=== PATIENT | male | born 1955 | race Caucasian/White ===

== ENCOUNTER 2020-05-14 01:17 | Inpatient (IN) | payer OTHER ==
[~2020-05-14] VITALS: Ht 167.6 cm; Wt 76.3 kg
[2020-05-14] VITALS (9 sets, daily range): BP systolic 105–139; BP diastolic 36–95
--- NOTE | 2020-05-14 01:25 | NUR ---
Pt [place] from a trailer [place] on [place] [address]. EMS was called after pt c/o SOB. Pt stated that he is a chronic cigarette and heroin smoker, he also uses methamphetamine. Patient has a history of heart failure, cellulitis of the lower legs, sepsis, type 2 diabetes mellitus, hydronephrosis with renal stone, cirrhosis is cyanosis of the distal extremities and substance abuse. Was last admitted on April 16 at [facility]. Pt is AO x 3, verbally responsive but a poor historian. He does not know if he can walk, states that he hasn't done in a while. Unable to obtain accurate SPO2 saturation, all digits of hands and legs are very cold to touch, discoloration noted as well. Breathing is even and unlabored, at 20 RR. Placed on 4LPM of O2 via NC for comfort. Has multiple sores throughout his body including his bilateral upper arms (swelling with open and closed wounds), hands, L buttocks (2 open pressure ulcers), bilateral knees (open sores), bilateral legs (swelling, open sores, discoloration), bilateral feet (open sores and swelling), DTI noted on L foot sole as well. Pillow support placed on L side. Side rails up x 2. Pending MSE.
--- NOTE | 2020-05-14 01:30 | NUR ---
Dr. Victor at bedside for MSE.
[2020-05-14] MEDS ORDERED: IV NORMAL SALINE 1000 ML BAG IV ONE (01:45)
--- NOTE | 2020-05-14 01:45 | NUR ---
Pt is a hardstick, although he denies IV drug use. Tried 3x,, finally got a PIV on R forearm 20G. Bloodculture and labs were drawn. Sent to lab.
[2020-05-14 02:00] LABS: ABG BASE EXCESS -0.2 mmol/L; ABG HCO3 24.3 mmol/L; ABG PCO2 39.2 mmHg (35.0-45.0); ABG PO2 35.8 mmHg (75.0-100.0); ABG SITE LEFT RADIAL; COHb 3.2 % (0.5-1.5); MetHb 0.4 % (0.0-1.5); O2Hb 64.3 % (94.0-97.0); VENT MODE ROOM AIR
--- NOTE | 2020-05-14 02:00 | NUR ---
Sepsis initial assessment done and SEPSIS protocols initiated, NS bolus fluids started.
[2020-05-14 02:13] LABS: BASOPHILS # (AUTO) 0.1 K/uL (0.0-8.0); BASOPHILS % (AUTO) 0.7 % (0.0-2.0); CARBON DIOXIDE 26 mmol/L (21-32); CHLORIDE 106 mmol/L (98-107); CREATININE 1.2 mg/dL (0.6-1.3); GLUCOSE 241 mg/dL (74-106); HEMATOCRIT 39.5 % (36.7-47.1); HEMOGLOBIN 12.3 g/dL (12.5-16.3); LYMPHOCYTES # (AUTO) 0.5 K/uL (20.0-40.0); LYMPHOCYTES % (AUTO) 2.5 % (20.5-51.5); MEAN CORPUSCULAR HEMOGLOBIN 24.2 uug (23.8-33.4); MEAN CORPUSCULAR HGB CONC 31 g/dL (32.5-36.3); MEAN CORPUSCULAR VOLUME 77.6 fL (73.0-96.2); MONOCYTES # (AUTO) 1.1 K/uL (2.0-10.0); MONOCYTES % (AUTO) 5.4 % (0.0-11.0); NEUTROPHILS # (AUTO) 18.9 K/uL (1.8-8.9); NEUTROPHILS % (AUTO) 91.4 % (38.5-71.5); PLATELET COUNT (AUTO) 317 K/uL (152-348); POTASSIUM 4.1 mmol/L (3.5-5.1); RED BLOOD CELL COUNT(AUTO) 5.09 MIL/uL (4.06-5.63); UREA NITROGEN, BLOOD 38 mg/dL (7-18); WHITE BLOOD COUNT (AUTO) 20.6 K/uL (3.6-10.2)
[2020-05-14 02:21] LABS: ETHANOL < 3 MG/DL (0-0)
[2020-05-14 02:26] LABS: THYROID STIMULATING HORMONE 6.644 mIU/mL (0.358-3.740)
[2020-05-14 02:28] LABS: ALANINE AMINOTRANSFERASE 96 U/L (16-63); ALKALINE PHOSPHATASE 229 U/L (50-136); ASPARTATE AMINOTRANSFERASE 89 U/L (15-37); BILIRUBIN,DIRECT 1.9 mg/dL (0.0-0.2); BILIRUBIN,TOTAL 2.7 mg/dL (0.2-1.0); TOTAL PROTEIN, SERUM 6.6 g/dL (6.4-8.2)
[2020-05-14] MEDS ORDERED: CEFTRIAXONE 2 G in IV DEXTROSE 5% 100 ML IV ONE (02:30)
--- NOTE | 2020-05-14 02:30 | NUR ---
First antibiotic started, Rocephin 2 grams via PIV on R FA.
[2020-05-14 02:32] LABS: *BILIRUBIN,URIN 2+ (NEGATIVE); *CLARITY,URINE CLEAR (CLEAR); *COLOR,URINE AMBER (YELLOW); *KETONES,URINE 2+ (NEGATIVE); LEUKOCYTE ESTERASE ,URINE 1+ (NEGATIVE); NITRITE, URINE NEGATIVE (NEGATIVE); PH,URINE 5.5 (5.0-8.0); UGLUCOSE NEGATIVE (NEGATIVE)
[2020-05-14] MEDS ORDERED: CEFTRIAXONE /D5W 50ML IVPB **ER PYXIS IV ONE (02:33)
[2020-05-14] MEDS ORDERED: VANCOMYCIN IV 200 ML ONE (02:33)
[2020-05-14 02:34] LABS: ACETAMINOPHEN < 2.0 ug/mL (10-30)
--- NOTE | 2020-05-14 02:45 | NUR ---
Pt went to CT scan, left in stable condition. Fluids held.
[2020-05-14 02:52] LABS: *AMPHETAMINE, URINE POSITIVE (NEGATIVE); *CANNABINOID, URINE POSITIVE (NEGATIVE); *COCCAINE, URINE NEGATIVE (NEGATIVE); *OPIATE, URINE POSITIVE (NEGATIVE); *PHENCYCLIDINE SCREEN,URINE NEGATIVE (NEGATIVE)
[2020-05-14 02:54] LABS: *BLOOD, URINE TRACE (NEGATIVE)
[2020-05-14 03:02] LABS: BACTERIA,URINE NONE SEEN /HPF (NONE SEEN); SQUAMOUS EPITHELIAL CELL,UR FEW /HPF (NONE SEEN); URIC ACID CRYSTALS,URINE FEW /HPF (NONE SEEN)
--- NOTE | 2020-05-14 03:15 | NUR ---
Pt back from CT, stable condition. Not in acute distress. Fluids continued.
[2020-05-14] MEDS: VANCOMYCIN IV 1,000 MG in IV DEXTROSE 5% 250 ML IV ONE ×2 (03:30→04:30)
--- NOTE | 2020-05-14 03:30 | NUR ---
Initial bolus of fluids finished at this time, sepsis re-assessment done.
--- NOTE | 2020-05-14 03:49 | NUR ---
Dr. Victor on the line with Dr. Holger Martínez for Tele admission, sepsis.
--- NOTE | 2020-05-14 03:50 | NUR ---
Pt with BM, perineal care provided. complete linen change done. Pt tolerated procedure. Turned on R side of the bed.
[2020-05-14] MEDS ORDERED: ACETAMINOPHEN 325 MG TABLET PO PRN (04:00)
[2020-05-14] MEDS ORDERED: MAGNESIUM HYDROXIDE 30 ML LIQUID UDC PO PRN (04:00)
[2020-05-14] MEDS ORDERED: ONDANSETRON 4 MG/2 ML VIAL IV PRN (04:00)
[2020-05-14] MEDS ORDERED: ENOXAPARIN SODIUM 40 MG/0.4 ML DISP.SYRIN SQ SCH (04:00)
--- NOTE | 2020-05-14 04:15 | NUR ---
Repeat Lactic and Troponin drawn per AMI/Sepsis Protocols.
--- NOTE | 2020-05-14 04:30 | NUR ---
Dr Victor notified of patient's continued AFIB RVR despite fluids given.
[2020-05-14] MEDS ORDERED: DILTIAZEM HCL 25 MG IV IV ONE ×2 (04:45→05:15)
[2020-05-14] MEDS ORDERED: DILTIAZEM HCL 25 MG IV ONE ×2 (04:49→06:21)
[2020-05-14] MEDS ORDERED: DEXTROSE 5% IV ONE (05:15)
[2020-05-14] MEDS ORDERED: DILTIAZEM HCL IV ONE (05:15)
[2020-05-14] MEDS ORDERED: DILTIAZEM HCL 50 MG IV ONE ×2 (05:23→06:21)
--- NOTE | 2020-05-14 05:45 | NUR ---
Dilitiazem 25 mg IV Push administered x 1 at 0445, still Afib RVR @ 90-130bpm, then another dose at Diltiazem 35 mg IV push administed x 1 0515. Re-assessed now, patient still @ 86-110 AFib RVR, not controlled. Dr Victor notified. [facility] paged.
--- NOTE | 2020-05-14 06:00 | NUR ---
Dr Wren called back, okay to admit FRANCESCO. [facility] Nurse Veronica notified, CCU-3 (FRANCESCO overflow given). New order for Diltiazem 5mg/hr noted, will carry out.
[2020-05-14] MEDS ORDERED: ENOXAPARIN SODIUM 40 MG/0.4 ML DISP.SYRIN SQ ONE (06:20)
--- NOTE | 2020-05-14 06:40 | NUR ---
Report given to Veronica ROGERS.
--- NOTE | 2020-05-14 07:30 | NUR ---
Patient in from [facility]. vitals signs stable, afebrile, pt some how able to assist with transfer from gurney to bed getting tired saturation within desire limits. sbp as follow: HR 115, 95/70 RR in the lower to mid 20's. IV G20 to RFA patent. Pt on oxygen 2L. saturation within desired limits. Skin with sores, in multiple stages all over pt's body see pictures. Addendum: 05/14/20 at 0900 by SABI GONZALEZ RN Patient received on cardizem drip running at 5mg/hr.
--- NOTE | 2020-05-14 08:15 | NUR ---
Cardiology services, Dr. Lewis in the unit and assessing pt. report given and orders to titrate cardizem drip if heart rate below 100. pt's current HR in the 110-120's range. will continue to monitor.
[2020-05-14] MEDS ORDERED: DIGOXIN 500 MCG/2 ML AMP IV ONE (09:00)
[2020-05-14] MEDS: ASPIRIN EC 81 MG TABLET.DR PO SCH (09:05)
[2020-05-14] MEDS: PANTOPRAZOLE SODIUM 40 MG TABLET.DR PO SCH (09:05)
[2020-05-14] MEDS: FUROSEMIDE 40 MG/4 ML VIAL IV SCH ×2 (09:05→20:45)
[2020-05-14] MEDS: CEFEPIME HCL 1 G in IV DEXTROSE 5% 50 ML IV SCH ×2 (13:21→22:01)
--- NOTE | 2020-05-14 14:05 | NUR ---
Promotion Officer note: This SW was informed by CCU RN Concetta about patient's condition and need for SS consultation. This SW and Concetta discussed patient's case, condition, and reason for admission. APS report was made for self-neglect. APS report # [id number]. This SW will follow-up with patient, to assess needs and offer resources, as applicable.
--- NOTE | 2020-05-14 14:48 | NUR ---
A call to attending physician Dr. Johnson to update him on pt's condition and behavior. Orders received and implemented. Also orders to obtained pt's old records from [email or web address].
--- NOTE | 2020-05-14 15:27 | NUR ---
The undersigned spoke with [facility] Medical records depto. at [employer], and at this time I was informed that pt was in this facility not long ago. Authorization for use or disclosure of health information faxed to ( as requested by attending physician Dr. Johnson. Awaiting for report.
[2020-05-14] MEDS: LORAZEPAM 2 MG/1 ML VIAL IV PRN (15:32)
[2020-05-14] MEDS: DIGOXIN 500 MCG/2 ML AMP IV SCH ×2 (15:32→20:46)
[2020-05-14] MEDS: VANCOMYCIN IV 1,250 MG in IV DEXTROSE 5% 250 ML IV SCH (15:38)
--- NOTE | 2020-05-14 19:00 | NUR ---
Received patient in bed awake and alert. Patient seems somewhat confused as sometimes his responses branch in a different direction than what I asked. Patient is otherwise calm at this moment while watching television. Was reported to me that the patient can get agitated and start being verbally abusive, and that a code rebolledo would be required for assistance. Patient has a DONNIE midline and a Right forearm 20g peripheral IV. IV currently running Diltiazem @5mL/hr and NS at 5ml TKO. Heart rate currently Sinus tachycardia with occasional PVC/PAC, with the rate ranging from the 100s-120s. Patient is supposed to be on 2L O2 via NC, however he has taken off his nasal cannula and is currently on room air with SAT 97-98%, no signs of distress. Alcocer catheter present and draining clear yellow urine. Patient's skin condition is concerning with numerous sores of varying size, color, and depth on virtually every surface of his body including all fingers and toes. Most concerning are the pressure sores on his buttocks and sacral area which are large. Skin coloring is also varying with distal bilateral lower extremities and the distal left arm and hand showing bright redness consistent with his history of cellulitis. The rest of the skin is slightly yellow/pale with mottling and occasional areas of bruising. First step mattress present in the room but not placed on the bed for safety concerns as the patient has been attempting to get out of bed.
[2020-05-14] MEDS: HYDROCODONE/APAP 5-325MG TABLET PO PRN (19:54)
[2020-05-14] MEDS: ENOXAPARIN SODIUM 100 MG/ML DISP.SYRIN SQ SCH (20:47)
[2020-05-15] VITALS (24 sets, daily range): BP systolic 109–147; BP diastolic 61–106
[2020-05-15] MEDS: DILTIAZEM HCL IV 125 MG in IV NORMAL SALINE 100 ML IV PRN ×3 (02:50→20:18)
[2020-05-15] MEDS: VANCOMYCIN IV 1,250 MG in IV DEXTROSE 5% 250 ML IV SCH ×2 (04:05→16:25)
[2020-05-15 05:05] LABS: BASOPHILS % (AUTO) 0.2 % (0.0-2.0); HEMATOCRIT 33.2 % (36.7-47.1); HEMOGLOBIN 10.3 g/dL (12.5-16.3); LYMPHOCYTES # (AUTO) 0.5 K/uL (20.0-40.0); LYMPHOCYTES % (AUTO) 3.5 % (20.5-51.5); MEAN CORPUSCULAR HEMOGLOBIN 23.6 uug (23.8-33.4); MEAN CORPUSCULAR HGB CONC 31 g/dL (32.5-36.3); MONOCYTES # (AUTO) 1.4 K/uL (2.0-10.0); MONOCYTES % (AUTO) 9.6 % (0.0-11.0); NEUTROPHILS # (AUTO) 12.2 K/uL (1.8-8.9); NEUTROPHILS % (AUTO) 86.7 % (38.5-71.5); PLATELET COUNT (AUTO) 219 K/uL (152-348); RED BLOOD CELL COUNT(AUTO) 4.38 MIL/uL (4.06-5.63); WHITE BLOOD COUNT (AUTO) 14.1 K/uL (3.6-10.2)
[2020-05-15 05:27] LABS: THYROID STIMULATING HORMONE 5.273 mIU/mL (0.358-3.740)
[2020-05-15 05:32] LABS: MAGNESIUM 1.4 mg/dL (1.8-2.4); PHOSPHOROUS 1.9 mg/dL (2.5-4.9)
[2020-05-15 05:47] LABS: POTASSIUM 2.7 mmol/L (3.5-5.1)
--- NOTE | 2020-05-15 07:15 | NUR ---
Received report from time cycle operator nurse, patient in bed awake and confused, alert only to name and president. Patient is sinus tachycardia on the monitor, oxygen saturation 95% on room air, perez catheter in place and draining appropriately. Air mattress inflated, side rails up x2, bed alarm on. hemodynamically stable.
[2020-05-15] MEDS: CEFEPIME HCL 1 G in IV DEXTROSE 5% 50 ML IV SCH ×3 (07:17→21:25)
[2020-05-15] MEDS: PANTOPRAZOLE SODIUM 40 MG TABLET.DR PO SCH (07:17)
[2020-05-15] MEDS ORDERED: MAGNESIUM SULFATE 1 GM in IV DEXTROSE 5% 100 ML IV ONE (07:30)
[2020-05-15] MEDS: MAGNESIUM SULFATE/D5W 100 ML IV SCH ×4 (07:49→11:02)
[2020-05-15] MEDS ORDERED: ENOXAPARIN SODIUM 40 MG/0.4 ML DISP.SYRIN SQ SCH (09:00)
[2020-05-15] MEDS: FUROSEMIDE 40 MG/4 ML VIAL IV SCH ×3 (09:00→20:25)
[2020-05-15] MEDS ORDERED: DIGOXIN 125 MCG TABLET PO SCH (09:00)
--- NOTE | 2020-05-15 09:04 | NUR ---
Patient seen by Dr. Johnson, discussed results of TSH levels, prior insulin usage and need for nicotine patch and podiatry consult due to blackened toes on left foot with open wounds. Orders received.
[2020-05-15] MEDS: ASPIRIN EC 81 MG TABLET.DR PO SCH (09:17)
[2020-05-15] MEDS: ENOXAPARIN SODIUM 100 MG/ML DISP.SYRIN SQ SCH ×2 (09:20→20:41)
--- NOTE | 2020-05-15 09:45 | NUR ---
Patient is agitated and is asking for a cigarette, patient stating that he may want to leave. Patient was asked if he would like something for his anxiety and he stated yes. patient given ativan.
[2020-05-15] MEDS: LORAZEPAM 2 MG/1 ML VIAL IV PRN ×3 (09:49→23:02)
[2020-05-15] MEDS: NICOTINE 21 MG/24HR PATCH TD SCH (09:50)
--- NOTE | 2020-05-15 10:00 | NUR ---
Patients belongings had 2 torch lighters that were given to dye house wheel operator Viry to take to security.
--- NOTE | 2020-05-15 10:34 | NUR ---
Patient seen by Dr Solomon Hand Cigar Maker. Received orders to paint wounds with betadyne and wrap with kerlix.
--- NOTE | 2020-05-15 11:06 | NUR ---
WOUND CARE CONSULT: PT UNCOOPERATIVE WITH SKIN ASSESSMENT. REVIEWED CHART, NURSING DOCUMENTATION AND PHOTOS WHICH INDICATE DRY WOUNDS TO ELBOWS, KNEES, LOWER LEGS AND FEET WELL INTACT DEEP TISSUE INJURIES TO SACRUM EXTENDING TO BUTTOCKS, ALL PRESENT ON ADMISSION. LEFT ARM NOTED TO BE SWOLLEN. RECOMMENDATIONS MADE FOR SKIN PROTECTION. DISCUSSED WITH NURSING STAFF. DR BANEGAS ON CASE FOR LOWER EXTREMITIES. DR GRIFFITH CONSULTED FOR SURGICAL CONSULT. [facility] IN AGREEMENT WITH PLAN OF CARE.
[2020-05-15] MEDS ORDERED: Z GUARD REMEDY PASTE 57 GM TUBE TOP PRN (11:15)
[2020-05-15] MEDS: POTASSIUM CHLORIDE 50 ML IV SCH ×8 (11:53→19:27)
--- NOTE | 2020-05-15 13:45 | NUR ---
Late note: Noted that Dr. Martinez ordered CTA of abdominal aorta with runoff. Contacted Dr. Martinez after he left the unit to request for him to sign form for incapacitated as patient can not sign for himself at this time due to confusion. Dr. Martinez stated that it isnt urgent and that it can be done when he is able to answer and consent to diagnostic imaging.
--- NOTE | 2020-05-15 14:33 | NUR ---
Compressor Repairer Consultation: 1:30pm: This SW met with patient today to complete a social media manager consultation. Reason for consultation is homelessness. Patient is a 64 year old male, who was brought into the ED by paramedics on 05/14 after friends/neighbors called the paramedics because patient was sitting in his van and smoking heroin and meth for nearly 1 week. Patient was found with urine on him, and was also sitting in a pool of his urine that was surrounding him. Admitting diagnosis is sepsis. Per patient's medical records, patient was recently at [facility] from 04/13-04/16 for sepsis, SOB, and cellulitis. Per patient's medical records, patient left [facility]. Patient is awake, presented oriented x 1-2. Patient attempted to engage in dialogue, but speech was unclear at times, and incoherent. Patient was not able to provide much information to this SW. When asked who the president was, patient stated "Jose Newton". Patient has wounds and scabs all over his body. APS report was made by this SW on 05/14 (see previous SS note). SW will remain available to patient, as needed. SW will work with case management to ensure a safe and proper discharge for the patient.
[2020-05-15] MEDS ORDERED: NEUTRA PHOS PACKET PO ONE (15:45)
--- NOTE | 2020-05-15 16:15 | NUR ---
Dr. Lewis in unit to see patient, he reviewed prior records and indicated to continue cardizem drip and titrate to keep HR below 110. CT scan when able.
--- NOTE | 2020-05-15 16:20 | NUR ---
Asked Dr. Lewis if he wanted to sign incapacitated form for CTA consent and he stated that it is ok to do scan when the patient is able to consent and answer questions for diagnostic procedure and that it will not change the course of treatment.
[2020-05-15] MEDS ORDERED: DEXTROSE 50% 50 ML DISP.SYRIN IV PRN (17:15)
--- NOTE | 2020-05-15 19:00 | NUR ---
Patient continues to be in sinus rhythm on the monitor. 95% oxygen saturation on 2L nasal cannula. Hemodynamically stable. Patient tolerating meals adequately, perez catheter in place perez catheter draining appropriately. Wounds wrapped after bath. air mattress inflated and bed in low position, with side rails upx2.
--- NOTE | 2020-05-15 20:00 | NUR ---
ROUNDS MADE PATIENT IN BED ,ON AND OFF AWAKE ,PATIENT ALERT AND AWAKE VERBALLY RESPONSIVE . SR TO AFIB WITH PVC AND PACS ON THE HEART MONITOR .CARDIZEM DRIP IN PROGRESS AT 5 MG/HR VIA THE RIGHT UPPER ARM MIDLINE . HOFFMAN CATHETER INTACT WITH YELLOWISH URINE , 02 AT 2 L/MIN SATURATION 98% ,HOB UP , ADVISED PATIENT TO CALL FOR ASSISTANCE AND TO USED THE CALL LIGHT .
[2020-05-15] MEDS: Z GUARD REMEDY PASTE 57 GM TUBE TOP SCH (20:25)
[2020-05-15] MEDS: BLOOD SUGAR DIAGNOSTIC 1 EACH STRIP VI SCH (20:42)
[2020-05-15] MEDS: INSULIN REGULAR, HUMAN 300 UNIT/3 ML VIAL SQ PRN (20:43)
--- NOTE | 2020-05-15 21:30 | NUR ---
patient requesting for something to eat ,given applesauce ,chocolate pudding and jello head of the bed up and aspiration precaution observed assisted with feeding .
--- NOTE | 2020-05-15 23:19 | NUR ---
patient asked to go out and he wants to smoked informed his in the hospital and its already 2300 at night patient insisted and wants his shoes ,educated patient and given Ativan prn for anxiety . will continue to monitor v/s and levels of comfort .
[2020-05-16] VITALS (24 sets, daily range): BP systolic 83–146; BP diastolic 59–89
--- NOTE | 2020-05-16 03:30 | NUR ---
am care done ,bath patient ,changed soiled linens and gown .wound care done to bilateral lower extremities to bilateral knee right and left hip and sacral area follow wound care treatment .patient requested ice chip given ,able to feed self .
[2020-05-16] MEDS: LORAZEPAM 2 MG/1 ML VIAL IV PRN ×2 (03:46→21:28)
[2020-05-16] MEDS: VANCOMYCIN IV 1,250 MG in IV DEXTROSE 5% 250 ML IV SCH ×2 (03:47→16:03)
[2020-05-16] MEDS ORDERED: VANCOMYCIN HCL 500 MG VIAL ONE (03:47)
[2020-05-16] MEDS ORDERED: VANCOMYCIN 1000 MG VIAL ONE (03:47)
--- NOTE | 2020-05-16 04:29 | NUR ---
tire and tube repairer at b/s for morning labs . patient for cbc,mag,bmp .
[2020-05-16 04:45] LABS: BASOPHILS # (AUTO) 0.1 K/uL (0.0-8.0); EOSINOPHILS % (AUTO) 0.2 % (0.0-7.0); HEMATOCRIT 31.5 % (36.7-47.1); HEMOGLOBIN 9.8 g/dL (12.5-16.3); LYMPHOCYTES # (AUTO) 0.5 K/uL (20.0-40.0); LYMPHOCYTES % (AUTO) 4.5 % (20.5-51.5); MEAN CORPUSCULAR HEMOGLOBIN 23.5 uug (23.8-33.4); MEAN CORPUSCULAR HGB CONC 31 g/dL (32.5-36.3); MEAN CORPUSCULAR VOLUME 75.3 fL (73.0-96.2); MONOCYTES # (AUTO) 1.1 K/uL (2.0-10.0); NEUTROPHILS # (AUTO) 10.3 K/uL (1.8-8.9); NEUTROPHILS % (AUTO) 85.3 % (38.5-71.5); PLATELET COUNT (AUTO) 171 K/uL (152-348); RED BLOOD CELL COUNT(AUTO) 4.18 MIL/uL (4.06-5.63); WHITE BLOOD COUNT (AUTO) 12.1 K/uL (3.6-10.2)
[2020-05-16 05:00] LABS: CREATININE 0.8 mg/dL (0.6-1.3); DIGOXIN 0.6 ng/mL (0.9-2.0)
[2020-05-16 05:04] LABS: POTASSIUM 2.6 mmol/L (3.5-5.1)
[2020-05-16] MEDS: CEFEPIME HCL 1 G in IV DEXTROSE 5% 50 ML IV SCH ×3 (05:19→21:27)
--- NOTE | 2020-05-16 06:00 | NUR ---
called abnormal am labs to [facility] service waiting for call back.
[2020-05-16] MEDS: PANTOPRAZOLE SODIUM 40 MG TABLET.DR PO SCH (06:15)
--- NOTE | 2020-05-16 06:15 | NUR ---
fingerstick done 144 will endorse to day shift .
[2020-05-16] MEDS: LEVOTHYROXINE SODIUM 25 MCG TABLET PO SCH (06:16)
[2020-05-16] MEDS: BLOOD SUGAR DIAGNOSTIC 1 EACH STRIP VI SCH ×4 (06:33→20:14)
--- NOTE | 2020-05-16 06:47 | NUR ---
called [facility] again for am labs . awaiting for call back dr: Holger nino construction scheduler .
--- NOTE | 2020-05-16 07:05 | NUR ---
due medication scan and patient took with sips of water.
[2020-05-16] MEDS ORDERED: MAGNESIUM SULFATE/D5W 100 ML IV SCH (07:45)
[2020-05-16] MEDS ORDERED: MAGNESIUM SULFATE 2 GM in IV DEXTROSE 5% 100 ML IV ONE ×2 (08:00→09:00)
[2020-05-16] MEDS ORDERED: POTASSIUM CHLORIDE 20 MEQ TAB.PRT.SR PO ONE ×4 (08:00→21:00)
[2020-05-16] MEDS: DIGOXIN 250 MCG TABLET PO SCH (08:05)
[2020-05-16] MEDS: ASPIRIN EC 81 MG TABLET.DR PO SCH (08:05)
[2020-05-16] MEDS: FUROSEMIDE 40 MG/4 ML VIAL IV SCH ×2 (08:05→20:15)
[2020-05-16] MEDS: Z GUARD REMEDY PASTE 57 GM TUBE TOP SCH ×2 (08:06→20:15)
[2020-05-16] MEDS: ENOXAPARIN SODIUM 100 MG/ML DISP.SYRIN SQ SCH ×2 (08:07→20:09)
[2020-05-16] MEDS: NICOTINE 21 MG/24HR PATCH TD SCH (08:08)
[2020-05-16] MEDS ORDERED: SWABABLE VALVE TRANSFER SET EA MC ONE (08:29)
[2020-05-16] MEDS ORDERED: IV NORMAL SALINE 250 ML IV ONE (08:29)
[2020-05-16] MEDS ORDERED: IOHEXOL 300MG/ML 100 ML INFUS..BTL ONE (08:29)
[2020-05-16] MEDS ORDERED: DIGOXIN 125 MCG TABLET PO SCH (09:00)
--- NOTE | 2020-05-16 09:00 | NUR ---
Pt.went to CT,tolerated well,no s/s of distress,denies pain @ time.
--- NOTE | 2020-05-16 10:00 | NUR ---
Pt.was seen by FIDENCIO FERGUSON MD
--- NOTE | 2020-05-16 10:53 | NUR ---
Pt.was seen by GUY COOPER MD,with new orders.
[2020-05-16] MEDS: INSULIN REGULAR, HUMAN 300 UNIT/3 ML VIAL SQ PRN ×3 (11:45→20:15)
[2020-05-16 17:15] LABS: CREATININE 0.8 mg/dL (0.6-1.3); MAGNESIUM 1.7 mg/dL (1.8-2.4); POTASSIUM 2.9 mmol/L (3.5-5.1)
--- NOTE | 2020-05-16 17:59 | NUR ---
[facility] WAS PAGED,LABS BACK- K+2.9, Mg+1.7.
[2020-05-16] MEDS: MAGNESIUM SULFATE/D5W 100 ML IV SCH ×3 (18:20→20:20)
[2020-05-16] MEDS: POTASSIUM CHLORIDE 50 ML IV SCH ×4 (18:20→21:27)
--- NOTE | 2020-05-16 18:30 | NUR ---
Pt. in bed,getting slightly agitated. No s/s of acute distress,denies pain @ time.
--- NOTE | 2020-05-16 19:30 | NUR ---
patient in bed awake ,alert. patient on room air no respiratory distress notes saturation 100% and rr 20. patient seems anxious and wants to go home and verbalized get me out in here . patient wants to call for taxi for him to go home . discussed with patient plan of care and that his still on antibiotic and extremely weak and he cannot even manage to walk for now and that he cannot even take care of himself.
--- NOTE | 2020-05-16 20:00 | NUR ---
afebrile temp 98.2 orally . requesting for ice chips provided assisted patient with po intake ,upper extremities hand aere weak . hob up aspiration precaution observed . call luis angel light placed with in reach and advised to call for help .
[2020-05-16] MEDS ORDERED: POTASSIUM CHLORIDE 20 MEQ TAB.PRT.SR ONE ×2 (20:19→20:27)
--- NOTE | 2020-05-16 21:00 | NUR ---
SARAHI HARTMAN CAME AND VISITED PATIENT AND SPOKED WITH PATIENT .
--- NOTE | 2020-05-16 22:13 | NUR ---
restarted Cardizem drip at 5 mg/hr afib 118 ,see emar .
[2020-05-16] MEDS: DILTIAZEM HCL IV 125 MG in IV NORMAL SALINE 100 ML IV PRN (22:17)
[2020-05-17] VITALS (24 sets, daily range): BP systolic 111–171; BP diastolic 56–94
[2020-05-17] MEDS: VANCOMYCIN IV 1,250 MG in IV DEXTROSE 5% 250 ML IV SCH ×2 (03:23→15:09)
[2020-05-17] MEDS: IV NORMAL SALINE 250 ML IV PRN (03:34)
--- NOTE | 2020-05-17 04:00 | NUR ---
am care done ,bath patient ,wound dressing done to upper and lower extremities,sacral area and Right and left hip .follow wound care recommendation .patient able to help in turning.max assist .
[2020-05-17] MEDS: CEFEPIME HCL 1 G in IV DEXTROSE 5% 50 ML IV SCH (05:14)
--- NOTE | 2020-05-17 05:24 | NUR ---
license clerk at b/s for am labs .
[2020-05-17 05:41] LABS: BASOPHILS # (AUTO) 0.1 K/uL (0.0-8.0); BASOPHILS % (AUTO) 0.7 % (0.0-2.0); EOSINOPHILS % (AUTO) 0.3 % (0.0-7.0); HEMATOCRIT 35.5 % (36.7-47.1); HEMOGLOBIN 10.9 g/dL (12.5-16.3); LYMPHOCYTES # (AUTO) 0.8 K/uL (20.0-40.0); LYMPHOCYTES % (AUTO) 5.3 % (20.5-51.5); MEAN CORPUSCULAR HEMOGLOBIN 23.4 uug (23.8-33.4); MEAN CORPUSCULAR HGB CONC 31 g/dL (32.5-36.3); MEAN CORPUSCULAR VOLUME 76.1 fL (73.0-96.2); MONOCYTES # (AUTO) 1.4 K/uL (2.0-10.0); MONOCYTES % (AUTO) 9.4 % (0.0-11.0); NEUTROPHILS # (AUTO) 12.1 K/uL (1.8-8.9); NEUTROPHILS % (AUTO) 84.3 % (38.5-71.5); PLATELET COUNT (AUTO) 178 K/uL (152-348); RED BLOOD CELL COUNT(AUTO) 4.66 MIL/uL (4.06-5.63); WHITE BLOOD COUNT (AUTO) 14.4 K/uL (3.6-10.2)
[2020-05-17 05:46] LABS: CREATININE 0.8 mg/dL (0.6-1.3); POTASSIUM 3.7 mmol/L (3.5-5.1)
[2020-05-17] MEDS: LEVOTHYROXINE SODIUM 25 MCG TABLET PO SCH (06:08)
[2020-05-17] MEDS: PANTOPRAZOLE SODIUM 40 MG TABLET.DR PO SCH (06:08)
[2020-05-17] MEDS: BLOOD SUGAR DIAGNOSTIC 1 EACH STRIP VI SCH ×4 (07:00→20:58)
--- NOTE | 2020-05-17 07:15 | NUR ---
Received report from rad tech nurse, patient in bed asleep no distress noted this time. Patient is in sinus rhythm on the monitor, hemodynamically stable, oxygen saturation WNL. Alcocer catheter draining appropriately. Air mattress inflated, Side rails up x2, and bed alarm on for safety. Continuous infusion of Cardizem noted @10ml/hr, and NS TKO line. Bed in low position, will continue to monitor.
[2020-05-17] MEDS: INSULIN REGULAR, HUMAN 300 UNIT/3 ML VIAL SQ PRN ×3 (07:17→17:27)
[2020-05-17] MEDS: DIGOXIN 250 MCG TABLET PO SCH (08:12)
[2020-05-17] MEDS: FUROSEMIDE 40 MG/4 ML VIAL IV SCH (08:12)
[2020-05-17] MEDS: ASPIRIN EC 81 MG TABLET.DR PO SCH (08:12)
[2020-05-17] MEDS: NICOTINE 21 MG/24HR PATCH TD SCH (08:12)
[2020-05-17] MEDS: Z GUARD REMEDY PASTE 57 GM TUBE TOP SCH ×2 (08:13→21:00)
[2020-05-17] MEDS: ENOXAPARIN SODIUM 100 MG/ML DISP.SYRIN SQ SCH ×2 (08:14→21:00)
--- NOTE | 2020-05-17 09:45 | NUR ---
Patient seen by Dr. Johnson. New orders received and carried out as ordered.
[2020-05-17] MEDS ORDERED: POTASSIUM CHLORIDE 20 MEQ POWDER PACKET PO ONE (11:00)
--- NOTE | 2020-05-17 11:45 | NUR ---
Patient seen by Dr. Lewis, orders received to stop cardizem drip and ok to downgrade to tele.
[2020-05-17] MEDS: CEFTRIAXONE 1 G in IV DEXTROSE 5% 50 ML IV SCH (13:55)
--- NOTE | 2020-05-17 14:41 | NUR ---
Notified Dr. Johnson that patient is having some mild hematuria and a nose bleed and that Dr. Lewis is ok to downgrade to Tele if he wants.
--- NOTE | 2020-05-17 15:19 | NUR ---
Received instructions to continue monitoring hematuria and nose bleeding, and hold lovenox if bleeding gets worse or persists.
--- NOTE | 2020-05-17 18:53 | NUR ---
Patient continues to be mildly confused at times. Patient alternates between sinus rhythm and afib on the monitor, is hemodynamically stable, and saturation is 96% on room air. Patient tolerating meals independently, and has not had a bowel movement today. Alcocer intact with some mild hematuria. Patient experiencing mild bleeding from left nares. Air mattress inflated, bed in low position, and side rails upx2. will endorse to oncoming shift.
--- NOTE | 2020-05-17 19:00 | NUR ---
Received patient asleep in bed. Patient is in sinus tachycardia on the monitor, hemodynamically stable, oxygen saturation 98% on RA. Alcocer catheter draining appropriately. First Step air mattress inflated. Multiple wound dressings present on Bilateral legs and feet. wound dressing present on left hand and forearm. Sacral wound dressings intact.
[2020-05-17] MEDS: INSULIN REGULAR, HUMAN 300 UNITS/3 ML VIAL SQ PRN (20:59)
--- NOTE | 2020-05-17 21:00 | NUR ---
Mild hematuria with notable clots present in the Alcocer catheter and collection bag. Left nare slightly bleeding. Wounds on the left hand slightly bleeding. 2100 Lovenox to be held.
[2020-05-17] MEDS: LORAZEPAM 2 MG/1 ML VIAL IV PRN (21:22)
--- NOTE | 2020-05-17 21:25 | NUR ---
Patient beginning to become agitated, expressing a desire to get out of bed and go smoke a cigarette and go to the store. Patient agitation increases when attempting to calm and re-orient the patient. Ativan given.
--- NOTE | 2020-05-17 22:25 | NUR ---
Patient currently calm and intermittently sleeping. Ativan effective.
[2020-05-18] VITALS (18 sets, daily range): BP systolic 111–140; BP diastolic 56–98
--- NOTE | 2020-05-18 00:50 | NUR ---
Patient awoke and began to become agitated again, demanding to go to the store. Patient had stripped off his gown and sheets and thrown pillows onto the floor. Linens replaced, patient repositioned in bed with a new gown and pillows for support and comfort, blanket placed over the patient. Patient immediately fell back asleep. No further intervention required.
[2020-05-18] MEDS: VANCOMYCIN IV 1,250 MG in IV DEXTROSE 5% 250 ML IV SCH ×2 (03:46→16:28)
[2020-05-18] MEDS: LORAZEPAM 2 MG/1 ML VIAL IV PRN (03:46)
--- NOTE | 2020-05-18 03:50 | NUR ---
Patient had become increasingly agitated again saying he wants to go have a cigarette and go to the store. Attempts at re-orienting and making him comfortable failed and only agitated him further. Patient attempted to exit the bed two times resulting in bed alarm sounding, and he began continuously removing ECG leads and SpO2 sensor. Non-pharmacological interventions failed to calm the patient. Ativan administered.
[2020-05-18 04:53] LABS: BASOPHILS # (AUTO) 0.1 K/uL (0.0-8.0); BASOPHILS % (AUTO) 0.5 % (0.0-2.0); EOSINOPHILS # (AUTO) 0.1 K/uL (0.0-0.7); EOSINOPHILS % (AUTO) 0.4 % (0.0-7.0); HEMATOCRIT 28.6 % (36.7-47.1); LYMPHOCYTES # (AUTO) 0.8 K/uL (20.0-40.0); LYMPHOCYTES % (AUTO) 5.3 % (20.5-51.5); MEAN CORPUSCULAR HEMOGLOBIN 23.7 uug (23.8-33.4); MEAN CORPUSCULAR HGB CONC 31 g/dL (32.5-36.3); MEAN CORPUSCULAR VOLUME 75.2 fL (73.0-96.2); MONOCYTES # (AUTO) 1.6 K/uL (2.0-10.0); MONOCYTES % (AUTO) 10.6 % (0.0-11.0); NEUTROPHILS # (AUTO) 12.9 K/uL (1.8-8.9); NEUTROPHILS % (AUTO) 83.2 % (38.5-71.5); PLATELET COUNT (AUTO) 182 K/uL (152-348); WHITE BLOOD COUNT (AUTO) 15.5 K/uL (3.6-10.2)
[2020-05-18 05:15] LABS: CREATININE 0.8 mg/dL (0.6-1.3); MAGNESIUM 1.7 mg/dL (1.8-2.4); PHOSPHOROUS 1.9 mg/dL (2.5-4.9); POTASSIUM 3.9 mmol/L (3.5-5.1)
--- NOTE | 2020-05-18 05:35 | NUR ---
Patient ended up ruining his wound dressings on left arm and bilateral lower legs due to his agitation. Wound care completed, all wounds treated with Betadine, new dressings placed. Patient given full bed bath and all noted weeping/open wounds treated with Betadine. Sacral wounds cleansed and new dressings placed. Oral care done and crusty coating on the lips gently removed with Chlorhexidine and lips moisturized.
[2020-05-18] MEDS: LEVOTHYROXINE SODIUM 25 MCG TABLET PO SCH (06:54)
[2020-05-18] MEDS: PANTOPRAZOLE SODIUM 40 MG TABLET.DR PO SCH (06:54)
[2020-05-18] MEDS: BLOOD SUGAR DIAGNOSTIC 1 EACH STRIP VI SCH ×4 (06:55→20:03)
[2020-05-18] MEDS: INSULIN REGULAR, HUMAN 300 UNIT/3 ML VIAL SQ PRN ×3 (06:55→18:13)
--- NOTE | 2020-05-18 07:15 | NUR ---
Received report from biochemistry specialist nurse, patient in bed awake, confused attempting to swallow medications with nurse at bedside. Tachycardic on the monitor 120 bpm, hemodynamically stable, oxygen saturation 99% on room air. Alcocer intact and draining. air mattress inflated, bed in low position, side rails up x2. Will continue to monitor.
[2020-05-18] MEDS ORDERED: FUROSEMIDE 40 MG TABLET PO SCH (09:00)
--- NOTE | 2020-05-18 09:00 | NUR ---
Dr Castle in unit. Notified him that lovenox was held last night due to minimal bleeding in perez and nose. Received orders to continue as ordered and monitor for more bleeding.
[2020-05-18] MEDS: MAGNESIUM SULFATE/D5W 100 ML IV SCH ×2 (09:06→10:42)
[2020-05-18] MEDS: ZINC SULFATE 220 MG CAPSULE PO SCH (09:06)
[2020-05-18] MEDS: ASPIRIN EC 81 MG TABLET.DR PO SCH (09:06)
[2020-05-18] MEDS: DIGOXIN 250 MCG TABLET PO SCH (09:06)
[2020-05-18] MEDS: ASCORBIC ACID 250 MG TABLET PO SCH (09:07)
[2020-05-18] MEDS: NICOTINE 21 MG/24HR PATCH TD SCH (09:08)
[2020-05-18] MEDS: ENOXAPARIN SODIUM 100 MG/ML DISP.SYRIN SQ SCH ×2 (09:09→21:08)
[2020-05-18] MEDS: Z GUARD REMEDY PASTE 57 GM TUBE TOP SCH ×2 (09:11→21:10)
[2020-05-18] MEDS: CARVEDILOL 6.25 MG TABLET PO SCH ×2 (09:26→17:39)
[2020-05-18] MEDS: CEFTRIAXONE 1 G in IV DEXTROSE 5% 50 ML IV SCH (13:55)
[2020-05-18] MEDS: IV NORMAL SALINE 250 ML IV PRN (15:41)
[2020-05-18] MEDS ORDERED: SODIUM PHOSPHATE MM 15 MMOL in IV NORMAL SALINE 250 ML IV ONE (17:00)
--- NOTE | 2020-05-18 17:00 | NUR ---
Wound care performed and redressed wounds.
[2020-05-18] MEDS: FUROSEMIDE 40 MG TABLET PO SCH (17:09)
--- NOTE | 2020-05-18 18:30 | NUR ---
RECEIVED PT TRANSFERRED FROM CCU. 64Y MALE BY BED. HE IS ON A FIRST STEP MATTRESS. AWAKE ALERT AND ORIENTED BUT SOMEWHAT FORGETFUL BUT VERBALLY RESPONSIVE. ON RA WITH NO SOB. ON TELE AFIB. HOFFMAN CATHETER WITH LOIDA COLORED URINE. NO HEMATURIA NOTED AT THIS TIME. PT HAS MULTIPLE WOUND AREAS. BL UPPER AND LOWER EXTREMITIES WITH WOUNDS AND EDEMA. ALSO HAS A SACRAL WOUND. SODIUM PHOSPHATE IN PROGRESS AT THIS TIME ORDERED. PT ORIENTED TO ROOM AND FACILITY PROTOCOL. CALL LIGHT WITHIN REACH. MADE COMFORTABLE. WILL OBSERVE.
--- NOTE | 2020-05-18 18:35 | NUR ---
Report given to Tele nurse Adia. Patient transferred to 3rd floor telemetry status. Alcocer intact, right upper arm midline intact with NaPhos running. Patient on room air, no distress noted.
--- NOTE | 2020-05-18 19:30 | NUR ---
PATIENT ALERT ORIENTED, NO SOB NO CHEST PAIN. PATIENT ON TELE MONITOR A FIB, PATIENT HOFFMAN CATH PATENT DRAINING WITH YELLOW COLOR URINE, LEIGH, TURN AND REPOSITION, CALL LIGHT WITHIN REACH, CONT TO MONITOR.
[2020-05-18] MEDS ORDERED: ENOXAPARIN SODIUM 100 MG/ML DISP.SYRIN SQ ONE (20:45)
[2020-05-18] MEDS: INSULIN REGULAR, HUMAN 300 UNITS/3 ML VIAL SQ PRN (21:06)
[2020-05-18] MEDS: HYDROCODONE/APAP 5-325MG TABLET PO PRN (22:13)
[2020-05-19] VITALS: BP 113/57
[2020-05-19] MEDS: LORAZEPAM 2 MG/1 ML VIAL IV PRN ×3 (01:39→21:58)
--- NOTE | 2020-05-19 01:47 | NUR ---
PATIENT AGITATED, YELLING, REMOVING ALL WOUND DRESSING AND ASKING FOR MORE MEDICATION FOR SLEEP, PATIENT GIVEN NARCO FOR PAIN AND COMFORT SO HE CAN SLEEP 3 HRS AGO, BUT PATIENT STILL AWAKE AGITATED, GIVEN ATIVAN ORDERED, AWAITING FOR RESULT, PATIENT REPOSITION AND KEPT CLEAN AND DRY. CONT TO MONITOR.
[2020-05-19 04:00] VITALS: BP 126/65
[2020-05-19] MEDS: VANCOMYCIN IV 1,250 MG in IV DEXTROSE 5% 250 ML IV SCH ×2 (04:19→16:32)
--- NOTE | 2020-05-19 05:29 | NUR ---
PATIENT ASLEEP BUT EASILY AROUSABLE, NO SOB NO CHEST PAIN, TELE MONITOR A FIB. TX DONE ON SACRUM AND LEFT BUTTOCK WOUND, PAINT OTHER WOUND STILL HAS CLEAN DRESSING, AND ENCOURAGE NOT TO REMOVED HIS DRESSINGS. PATIENT HAS NO COMPLAIN OF PAIN AT THIS TIME. CONT TO MONITOR.
[2020-05-19] MEDS: LEVOTHYROXINE SODIUM 25 MCG TABLET PO SCH (06:01)
[2020-05-19] MEDS: PANTOPRAZOLE SODIUM 40 MG TABLET.DR PO SCH (06:01)
[2020-05-19] MEDS: BLOOD SUGAR DIAGNOSTIC 1 EACH STRIP VI SCH ×4 (06:09→20:20)
[2020-05-19] MEDS ORDERED: LIDOCAINE HCL 1% 20 ML VIAL IJ PRN (07:00)
[2020-05-19] MEDS ORDERED: THERAHONEY GEL 1.5 OZ TUBE TOP PRN (07:00)
[2020-05-19 07:06] LABS: CREATININE 0.8 mg/dL (0.6-1.3); POTASSIUM 3.2 mmol/L (3.5-5.1)
[2020-05-19] MEDS ORDERED: POTASSIUM CHLORIDE 20 MEQ POWDER PACKET PO ONE (08:00)
[2020-05-19] MEDS ORDERED: CARVEDILOL 6.25 MG TABLET PO SCH (08:00)
[2020-05-19] MEDS: INSULIN REGULAR, HUMAN 300 UNIT/3 ML VIAL SQ PRN ×3 (08:04→16:46)
--- NOTE | 2020-05-19 08:06 | NUR ---
AWAKE ALERT SEEN HIS RIGHT LEG DANGLING TO THE SIDE OF THE BED REPOSITIONED AND WHEN ASKED HOW HE WAS STATED THAT HE WANTED TO GO HOME AND WHEN ASKED HOW HE WILL GET HOME STATED HE WILL CALL THE [facility] TO TRANSPORT HIM HOME BUT PATIENT ENCOURAGE TO WAIT FOR HIS MEDICAL PROVIDER TO SEE HIM AND DISCHARGE HIM IF ITS SAFE FOR HIM TO LEAVE UNABLE TO REDIRECT SO PATIENT MEDICATED WITH ATIVAN AT THIS TIME MADE COMFORTABLE WILL CONTINUE TO OBSERVE.
[2020-05-19] MEDS: ZINC SULFATE 220 MG CAPSULE PO SCH (08:07)
[2020-05-19] MEDS: DIGOXIN 250 MCG TABLET PO SCH (08:07)
[2020-05-19] MEDS: ASPIRIN EC 81 MG TABLET.DR PO SCH (08:07)
[2020-05-19] MEDS: FUROSEMIDE 40 MG TABLET PO SCH ×2 (08:07→17:02)
[2020-05-19] MEDS: ASCORBIC ACID 250 MG TABLET PO SCH (08:07)
[2020-05-19] MEDS: NICOTINE 21 MG/24HR PATCH TD SCH (08:07)
[2020-05-19] MEDS: Z GUARD REMEDY PASTE 57 GM TUBE TOP SCH ×2 (08:08→20:13)
[2020-05-19] MEDS: POTASSIUM CHLORIDE 50 ML IV SCH ×4 (08:47→11:58)
[2020-05-19] MEDS: SPIRONOLACTONE 25 MG TABLET PO SCH (08:48)
[2020-05-19] MEDS: CARVEDILOL 12.5 MG TABLET PO SCH ×2 (08:51→17:02)
--- NOTE | 2020-05-19 09:00 | NUR ---
PHYSICAL THERAPY HERE AND SEEN PATIENT PER THE THERAPIST HE WAS ABLE TO STAND AND ONLY ABLE TO TAKE SIDE FEW SIDE STEPS WITH MAX ASSIST OF 2 WITH POOR ENDURANCE AND ASSISTED BACK INTO BED PATIENT IS TOTALLY DEPENDENT FOR ALL ACTIVITIES OF DAILY LIVING ABLE TO MAKE SOME NEEDS KNOWN REMAIN ON FIRST STEP TATYANA FOR DECUBITUS MANAGEMENT HAS MULTIPLE DECUBITUS ON LEFT RIGHT BUTTOCKS SACRAL BILATERAL LOWER LEGS WITH TREATMENT IN PROGRESS ORDERED CALL LIGHTS AND PERSONAL BELONGINGS ARE WITHIN EASY REACH AT THIS TIME WILL CONTINUE TO OBSERVE.
[2020-05-19] MEDS: ENOXAPARIN SODIUM 100 MG/ML DISP.SYRIN SQ SCH ×2 (09:57→20:12)
--- NOTE | 2020-05-19 11:00 | NUR ---
[facility] HERE TO DO DEBRIDEMENT ON THE PATIENT BUTTOCKS AND SACRAL WOUNDS BUT THE PATIENT WAS NOT READY TO DO IT TODAY SO HE STATED WILL BE HERE TOMORROW INSTEAD TO DO THE DEBRIDEMENT.
[2020-05-19 11:38] VITALS: BP 115/61
[2020-05-19] MEDS: CEFTRIAXONE 1 G in IV DEXTROSE 5% 50 ML IV SCH (13:00)
--- NOTE | 2020-05-19 13:10 | NUR ---
CALL RECEIVED FROM DR BHATT RADIOLOGIST AND HE STATED THAT PATIENT HAS BEEP VEIN THROMBOSIS IN THE JUGULAR AND SUBCLAVIAN VEINS CALLED DARWIN GOINS DOG CATCHER PROVIDER AND NOTIFIED HIM WITH NO NEW ORDERS AT THIS TIME.
--- NOTE | 2020-05-19 13:15 | NUR ---
DR BANEGAS HERE STATED TO OBTAIN CONSCENT FOR THE DEBRIDEMENT OF THE CHRISTOS LOWER EXT DONE AT THE BEDSIDE AND PATIENT TOLERATED WELL
[2020-05-19] MEDS: HYDROCODONE/APAP 5-325MG TABLET PO PRN ×2 (13:19→20:22)
--- NOTE | 2020-05-19 13:19 | NUR ---
PATIENT STATED STILL HAVING PAIN EVEN THOUGH HE RECEIVED A DOSE OF NORCO EARLIER SO DR BANEGAS STATED TO GIVE PATIENT AN EXTRA DOSE OF NORCO ONE TIME AND GIVEN ORDERED.
[2020-05-19] MEDS ORDERED: HYDROCODONE/APAP 5-325MG TABLET PO STA (13:33)
--- NOTE | 2020-05-19 13:55 | NUR ---
Health Promoter Note: 10:30am: This SW met with patient today, to follow-up with completing patient's assessment, since patient was not oriented and able to provide much information during initial meeting. Patient was lying down in bed when SW entered the room, awake, alert, watching TV. Patient was receptive to meeting with this SW. Patient is a 64 year old male who was brought in to the ED on 05/14 after neighbors/friends called 911 due to patient sitting in his van for 1 week, doing heroin and meth. Patient was found by paramedics to be surrounded in his own urine. Patient reports that he lives in a trailer which is parked on a street in [place]; patient was unable to provide name of street. Patient reported that has been his living arrangement for years. Patient has [facility], and reported that he does not receive any financial assistance from the government. 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 SW assessed patient's hx of substance abuse, and patient reported that he used to be a heavy drinker, drinking tequila on a daily basis, however he stopped drinking over 25 years ago. 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 Patient reported current use of these 2 drugs. Patient also reported that he also smokes 1/3 pack of cigarettes per day. SW explored patient's support system, and patient reports he has a mother, Kelly, who lives in [place], however was not able to provide this SW with a phone number at this time. Discharge plans were discussed, and patient stated that he was not sure if he could return to his trailer, and therefore was unsure of discharge plans at this time. SW spoke with patient's nurse Adia, who stated that patient is currently requires assistance with ambulation and ADL's, and is unable to ambulate on his own. SW will coordinate with case management to ensure a proper and safe discharge plan for the patient. SW will continue to remain available for this patient, as needed. Addendum: 05/19/20 at 1544 by DEEPAK GALDAMEZ Additional information: Patient reported that he has not been in substance abuse treatment in the past. SW offered patient resources for substance abuse treatment, and patient stated that he is not interested in going to treatment.
[2020-05-19 15:59] VITALS: BP 93/52
--- NOTE | 2020-05-19 16:51 | NUR ---
NOTED KELLEE BLOOD SIPPING THROUGH THE APPLIED DRESSING AFTER THE DEBRIDEMENT ON HIS BILATERAL LOWER EXTREMITIES SO DRESSING WAS REINFORCED WITH GAUZE AND KIRLIX AT ABOUT 1529 AND NOW NOTED THAT THE BLOOD IS SIPPING THROUGH AGAIN THROUGH THE REINFORCED DRESSING SO CALLED AND NOTIFIED DARWIN MATOS AND STATED TO JUST HOLD THE ORDERED LOVENOX FOR TONITE AND NOTED WILL ENDORSE.
--- NOTE | 2020-05-19 18:28 | NUR ---
AWAKE ALERT IN BED ASKING FOR SNACKS DESPITE THE FACT THAT HE ATE HIS DINNER AND HE IS ON CCHO DIET SO DIET PUDDING GIVEN REMINDED THAT HE IS ON CARBOHYDRATE CONTROLLED DIET WILL CONTINUE TO OBSERVE.
[2020-05-19 20:00] VITALS: BP 110/57
[2020-05-19] MEDS: INSULIN REGULAR, HUMAN 300 UNITS/3 ML VIAL SQ PRN (20:21)
[2020-05-20] VITALS: BP 127/70
[2020-05-20 04:00] VITALS: BP 112/56
[2020-05-20] MEDS: LEVOTHYROXINE SODIUM 25 MCG TABLET PO SCH (06:00)
[2020-05-20] MEDS: VANCOMYCIN IV 1,250 MG in IV DEXTROSE 5% 250 ML IV SCH ×2 (06:00→21:00)
[2020-05-20] MEDS: PANTOPRAZOLE SODIUM 40 MG TABLET.DR PO SCH (06:00)
[2020-05-20] MEDS: BLOOD SUGAR DIAGNOSTIC 1 EACH STRIP VI SCH ×4 (06:30→21:00)
--- NOTE | 2020-05-20 06:35 | NUR ---
Pt slept intermittently throughout the night. Gave one dose of Ativan and one dose of [place] as ordered at the beginning of the shift. Currently denies pain. Denies SOB. Afib controlled on tele. Pt requested snacks, was [facility]. Wound dressings changed and wounds cleansed. No other issues or concerns at this time. Will endorse to day shift.
[2020-05-20 09:21] LABS: CREATININE 0.7 mg/dL (0.6-1.3); MAGNESIUM 1.7 mg/dL (1.8-2.4); POTASSIUM 3.6 mmol/L (3.5-5.1)
[2020-05-20 09:25] LABS: BASOPHILS # (AUTO) 0.1 K/uL (0.0-8.0); EOSINOPHILS # (AUTO) 0.2 K/uL (0.0-0.7); EOSINOPHILS % (AUTO) 1.6 % (0.0-7.0); HEMATOCRIT 23.1 % (36.7-47.1); LYMPHOCYTES # (AUTO) 1.2 K/uL (20.0-40.0); LYMPHOCYTES % (AUTO) 9.3 % (20.5-51.5); MEAN CORPUSCULAR HEMOGLOBIN 23.9 uug (23.8-33.4); MEAN CORPUSCULAR HGB CONC 31 g/dL (32.5-36.3); MEAN CORPUSCULAR VOLUME 76.2 fL (73.0-96.2); MONOCYTES # (AUTO) 1.3 K/uL (2.0-10.0); MONOCYTES % (AUTO) 10.2 % (0.0-11.0); NEUTROPHILS % (AUTO) 77.9 % (38.5-71.5); PLATELET COUNT (AUTO) 286 K/uL (152-348); RED BLOOD CELL COUNT(AUTO) 3.04 MIL/uL (4.06-5.63); WHITE BLOOD COUNT (AUTO) 12.8 K/uL (3.6-10.2)
[2020-05-20 09:26] VITALS: BP 118/57
[2020-05-20] MEDS: FUROSEMIDE 40 MG TABLET PO SCH (09:27)
[2020-05-20] MEDS: ASPIRIN EC 81 MG TABLET.DR PO SCH (09:27)
[2020-05-20] MEDS: ASCORBIC ACID 250 MG TABLET PO SCH (09:27)
[2020-05-20] MEDS: SPIRONOLACTONE 25 MG TABLET PO SCH (09:28)
[2020-05-20] MEDS: NICOTINE 21 MG/24HR PATCH TD SCH (09:28)
[2020-05-20] MEDS: CARVEDILOL 12.5 MG TABLET PO SCH ×2 (09:28→17:46)
[2020-05-20] MEDS: DIGOXIN 250 MCG TABLET PO SCH (09:28)
[2020-05-20] MEDS: ENOXAPARIN SODIUM 100 MG/ML DISP.SYRIN SQ SCH ×2 (09:30→21:00)
[2020-05-20 09:35] LABS: HEMOGLOBIN 7.3 g/dL (12.5-16.3)
[2020-05-20] MEDS: ZINC SULFATE 220 MG CAPSULE PO SCH (09:36)
[2020-05-20] MEDS: Z GUARD REMEDY PASTE 57 GM TUBE TOP SCH ×2 (09:37→21:00)
[2020-05-20 11:13] VITALS: BP 101/67
[2020-05-20] MEDS: INSULIN REGULAR, HUMAN 300 UNIT/3 ML VIAL SQ PRN ×2 (12:55→17:50)
[2020-05-20] MEDS: CEFTRIAXONE 1 G in IV DEXTROSE 5% 50 ML IV SCH (13:29)
[2020-05-20 15:46] VITALS: BP 111/57
--- NOTE | 2020-05-20 18:54 | NUR ---
pt alert oriented x4, on blood sugar check with insulin coverage, taught pt on the importance of properly monitoring his blood sugar and injecting insulin per sliding scale specially for wound healing, acknowledge his understanding. wound doctor came in for wound debridement on the buttocks with pt consent. meds administered as ordered tolerated well. needs attended to and met, will continue to monitor.
--- NOTE | 2020-05-20 19:06 | NUR ---
wound treatment was done as ordered
[2020-05-20 20:00] VITALS: BP 94/43
[2020-05-20] MEDS ORDERED: ENOXAPARIN SODIUM 100 MG/ML DISP.SYRIN SQ ONE (21:28)
[2020-05-20] MEDS: INSULIN REGULAR, HUMAN 300 UNITS/3 ML VIAL SQ PRN (22:36)
[2020-05-21] VITALS (20 sets, daily range): BP systolic 86–117; BP diastolic 48–62
[2020-05-21] MEDS: LORAZEPAM 2 MG/1 ML VIAL IV PRN (00:22)
--- NOTE | 2020-05-21 04:47 | NUR ---
Pt slept throughout the night. Denies pain or SOB. Wound care was completed for patient per orders. Lovenox was not held for patient despite bleeding from wound debridement site per [facility] [employer]ZARD[employer] WASTE REMOVER due to positive DVT in jugular. IV site is patent. Pt is A fib controlled on the monitor. Denies chest pain or discomfort. Bed is locked and in lowest position, call light is within reach. No other issues or concerns at this time, will endorse to day shift.
[2020-05-21] MEDS: PANTOPRAZOLE SODIUM 40 MG TABLET.DR PO SCH (06:04)
[2020-05-21] MEDS: LEVOTHYROXINE SODIUM 25 MCG TABLET PO SCH (06:04)
[2020-05-21] MEDS: BLOOD SUGAR DIAGNOSTIC 1 EACH STRIP VI SCH ×4 (07:09→20:59)
[2020-05-21 07:38] LABS: EOSINOPHILS # (AUTO) 0.1 K/uL (0.0-0.7); LYMPHOCYTES # (AUTO) 1.5 K/uL (20.0-40.0)
[2020-05-21 07:40] LABS: BASOPHILS # (AUTO) 0.2 K/uL (0.0-8.0); BASOPHILS % (AUTO) 0.9 % (0.0-2.0); EOSINOPHILS % (AUTO) 0.8 % (0.0-7.0); LYMPHOCYTES % (AUTO) 7.9 % (20.5-51.5); MEAN CORPUSCULAR HEMOGLOBIN 24.3 uug (23.8-33.4); MEAN CORPUSCULAR HGB CONC 32 g/dL (32.5-36.3); MEAN CORPUSCULAR VOLUME 76.8 fL (73.0-96.2); MONOCYTES % (AUTO) 10.8 % (0.0-11.0); NEUTROPHILS # (AUTO) 14.9 K/uL (1.8-8.9); NEUTROPHILS % (AUTO) 79.6 % (38.5-71.5); PLATELET COUNT (AUTO) 316 K/uL (152-348); WHITE BLOOD COUNT (AUTO) 18.6 K/uL (3.6-10.2)
[2020-05-21 07:44] LABS: CREATININE 0.8 mg/dL (0.6-1.3); MAGNESIUM 1.8 mg/dL (1.8-2.4); POTASSIUM 3.8 mmol/L (3.5-5.1)
[2020-05-21] MEDS: CARVEDILOL 12.5 MG TABLET PO SCH ×2 (08:13→17:27)
[2020-05-21] MEDS: ASPIRIN EC 81 MG TABLET.DR PO SCH (08:13)
[2020-05-21] MEDS: NICOTINE 21 MG/24HR PATCH TD SCH (08:13)
[2020-05-21] MEDS: ZINC SULFATE 220 MG CAPSULE PO SCH (08:13)
[2020-05-21] MEDS: DIGOXIN 250 MCG TABLET PO SCH (08:13)
[2020-05-21] MEDS: SPIRONOLACTONE 25 MG TABLET PO SCH (08:14)
[2020-05-21] MEDS: FUROSEMIDE 40 MG TABLET PO SCH (08:14)
[2020-05-21] MEDS ORDERED: POTASSIUM CHLORIDE 20 MEQ POWDER PACKET PO ONE (08:15)
[2020-05-21] MEDS: ASCORBIC ACID 250 MG TABLET PO SCH (08:15)
[2020-05-21] MEDS ORDERED: CELLULOSE,OXIDIZED 4X8 MC PRN (08:15)
[2020-05-21] MEDS: MAGNESIUM SULFATE/D5W 100 ML IV SCH ×2 (08:39→09:20)
[2020-05-21] MEDS: Z GUARD REMEDY PASTE 57 GM TUBE TOP SCH ×2 (08:40→20:53)
[2020-05-21] MEDS: INSULIN REGULAR, HUMAN 300 UNIT/3 ML VIAL SQ PRN ×3 (08:48→17:45)
[2020-05-21] MEDS ORDERED: ENOXAPARIN SODIUM 80 MG/0.8 ML DISP.SYRIN SQ SCH (09:00)
[2020-05-21 10:26] LABS: HEMATOCRIT 15.7 % (36.7-47.1); RED BLOOD CELL COUNT(AUTO) 2.05 MIL/uL (4.06-5.63)
[2020-05-21 11:26] LABS: IRON, SERUM 42 ug/dL (50-175)
[2020-05-21 11:51] LABS: FERRITIN 79 ng/mL (26-388)
[2020-05-21] MEDS: VANCOMYCIN IV 1,250 MG in IV DEXTROSE 5% 250 ML IV SCH (11:52)
[2020-05-21] MEDS ORDERED: IV NORMAL SALINE 250 ML IV ONE ×3 (13:00→13:29)
[2020-05-21] MEDS ORDERED: IOHEXOL 350 100 ML INFUS..BTL ONE (13:29)
[2020-05-21] MEDS ORDERED: SWABABLE VALVE TRANSFER SET EA MC ONE (13:29)
[2020-05-21] MEDS: CEFTRIAXONE 1 G in IV DEXTROSE 5% 50 ML IV SCH (14:18)
[2020-05-21] MEDS: SOD FERRIC GLUC COMPLX/SUCROSE 125 MG in IV NORMAL SALINE 100 ML IV SCH (14:59)
[2020-05-21] MEDS ORDERED: diphenhydrAMINE 50 MG/1 ML VIAL IV ONE (15:00)
[2020-05-21] MEDS ORDERED: ACETAMINOPHEN 325 MG TABLET PO ONE (15:00)
[2020-05-21] MEDS ORDERED: PHYTONADIONE 10 MG/1 ML AMPUL SQ ONE (15:15)
--- NOTE | 2020-05-21 16:36 | NUR ---
2 unit of prbc given per md orders,no a/r noted .vs are stable
[2020-05-21 18:56] LABS: BASOPHILS # (AUTO) 0.1 K/uL (0.0-8.0); BASOPHILS % (AUTO) 0.7 % (0.0-2.0); EOSINOPHILS # (AUTO) 0.1 K/uL (0.0-0.7); LYMPHOCYTES # (AUTO) 1.6 K/uL (20.0-40.0)
[2020-05-21 18:58] LABS: EOSINOPHILS % (AUTO) 0.5 % (0.0-7.0); HEMATOCRIT 21.7 % (36.7-47.1); MEAN CORPUSCULAR HEMOGLOBIN 26.1 uug (23.8-33.4); MEAN CORPUSCULAR HGB CONC 32 g/dL (32.5-36.3); MEAN CORPUSCULAR VOLUME 82.3 fL (73.0-96.2); MONOCYTES # (AUTO) 2.4 K/uL (2.0-10.0); MONOCYTES % (AUTO) 13.2 % (0.0-11.0); NEUTROPHILS # (AUTO) 13.8 K/uL (1.8-8.9); NEUTROPHILS % (AUTO) 76.6 % (38.5-71.5); PLATELET COUNT (AUTO) 305 K/uL (152-348); RED BLOOD CELL COUNT(AUTO) 2.64 MIL/uL (4.06-5.63); WHITE BLOOD COUNT (AUTO) 17.9 K/uL (3.6-10.2)
[2020-05-21 19:30] LABS: HEMOGLOBIN 6.9 g/dL (12.5-16.3)
[2020-05-21] MEDS ORDERED: FUROSEMIDE 20 MG/2 ML VIAL IV ONE (20:15)
[2020-05-21] MEDS: PANTOPRAZOLE SODIUM 40 MG VIAL IV SCH (20:53)
[2020-05-21] MEDS: INSULIN REGULAR, HUMAN 300 UNITS/3 ML VIAL SQ PRN (21:03)
[2020-05-21] MEDS: HYDROCODONE/APAP 5-325MG TABLET PO PRN (22:39)
[2020-05-21 23:33] LABS: BAND % (MANUAL) 1 % (0-10); EOSINOPHILS % (MANUAL) 1 % (0-8); LYMPHOCYTES % (MANUAL) 9 % (20-40); MONOCYTES % (MANUAL) 10 % (2-10); NEUTROPHILS % (MANUAL) 79 % (42-75)
[2020-05-22] VITALS (7 sets, daily range): BP systolic 90–117; BP diastolic 44–64
[2020-05-22 00:13] LABS: LYMPHOCYTES % (MANUAL) 9 % (20-40); MONOCYTES % (MANUAL) 10 % (2-10); NEUTROPHILS % (MANUAL) 81 % (42-75)
--- NOTE | 2020-05-22 00:21 | NUR ---
1 unit PRBC given per MD order. No adverse reaction noted.VS 117/59, pulse 79, Temp 98.7, on 2L NC at 100% Will continue to monitor.
[2020-05-22] MEDS: LORAZEPAM 2 MG/1 ML VIAL IV PRN (00:38)
[2020-05-22] MEDS: VANCOMYCIN IV 1,250 MG in IV DEXTROSE 5% 250 ML IV SCH ×2 (01:33→15:13)
[2020-05-22] MEDS ORDERED: FUROSEMIDE 20 MG/2 ML VIAL ONE (02:20)
[2020-05-22] MEDS: LEVOTHYROXINE SODIUM 25 MCG TABLET PO SCH (06:33)
[2020-05-22] MEDS: BLOOD SUGAR DIAGNOSTIC 1 EACH STRIP VI SCH ×4 (06:33→20:27)
[2020-05-22 06:38] LABS: CREATININE 0.7 mg/dL (0.6-1.3); MAGNESIUM 1.8 mg/dL (1.8-2.4); POTASSIUM 3.5 mmol/L (3.5-5.1)
--- NOTE | 2020-05-22 06:49 | NUR ---
Pt stable throughout the shift. Wound care was done. Comfort care and needs attended. Safety measures in place. Call lights within reach. Will endorse to oncoming nurse.
[2020-05-22 06:54] LABS: BASOPHILS # (AUTO) 0.2 K/uL (0.0-8.0); NEUTROPHILS # (AUTO) 14.1 K/uL (1.8-8.9)
[2020-05-22 06:55] LABS: EOSINOPHILS # (AUTO) 0.2 K/uL (0.0-0.7); EOSINOPHILS % (AUTO) 0.9 % (0.0-7.0); HEMATOCRIT 22.1 % (36.7-47.1); LYMPHOCYTES # (AUTO) 1.6 K/uL (20.0-40.0); LYMPHOCYTES % (AUTO) 8.7 % (20.5-51.5); MEAN CORPUSCULAR HEMOGLOBIN 26.6 uug (23.8-33.4); MEAN CORPUSCULAR HGB CONC 32 g/dL (32.5-36.3); MEAN CORPUSCULAR VOLUME 83.7 fL (73.0-96.2); MONOCYTES # (AUTO) 1.9 K/uL (2.0-10.0); MONOCYTES % (AUTO) 10.7 % (0.0-11.0); NEUTROPHILS % (AUTO) 78.7 % (38.5-71.5); PLATELET COUNT (AUTO) 295 K/uL (152-348); RED BLOOD CELL COUNT(AUTO) 2.64 MIL/uL (4.06-5.63)
[2020-05-22] MEDS: CARVEDILOL 12.5 MG TABLET PO SCH ×2 (07:53→18:02)
[2020-05-22] MEDS: INSULIN REGULAR, HUMAN 300 UNIT/3 ML VIAL SQ PRN ×3 (07:55→16:28)
[2020-05-22] MEDS: FUROSEMIDE 40 MG TABLET PO SCH (08:00)
[2020-05-22] MEDS: ZINC SULFATE 220 MG CAPSULE PO SCH (08:00)
[2020-05-22] MEDS: PANTOPRAZOLE SODIUM 40 MG VIAL IV SCH ×2 (08:00→20:25)
[2020-05-22] MEDS: SPIRONOLACTONE 25 MG TABLET PO SCH (08:00)
[2020-05-22] MEDS: DIGOXIN 250 MCG TABLET PO SCH (08:00)
[2020-05-22] MEDS: ASCORBIC ACID 250 MG TABLET PO SCH (08:00)
[2020-05-22] MEDS: Z GUARD REMEDY PASTE 57 GM TUBE TOP SCH ×2 (08:01→20:27)
[2020-05-22] MEDS: NICOTINE 21 MG/24HR PATCH TD SCH ×2 (08:01→08:11)
--- NOTE | 2020-05-22 12:11 | NUR ---
SEEN BY KYM CHOU - SURGERY. SACRAL AREA WOUND DRESSING CHANGED. NO S/S OF BLEEDING NOTED ON WOUND BED. WILL CONTINUE TO MONITOR.
[2020-05-22 13:07] LABS: HEMATOCRIT 22.4 % (36.7-47.1)
[2020-05-22] MEDS: CEFTRIAXONE 1 G in IV DEXTROSE 5% 50 ML IV SCH (13:08)
[2020-05-22 13:18] LABS: HEMOGLOBIN 7.2 g/dL (12.5-16.3)
[2020-05-22] MEDS ORDERED: ZOLPIDEM 5 MG TABLET PO PRN (13:45)
[2020-05-22] MEDS: SOD FERRIC GLUC COMPLX/SUCROSE 125 MG in IV NORMAL SALINE 100 ML IV SCH (14:04)
[2020-05-22] MEDS ORDERED: FUROSEMIDE 40 MG/4 ML VIAL IV ONE (16:15)
[2020-05-22] MEDS: INSULIN REGULAR, HUMAN 300 UNITS/3 ML VIAL SQ PRN (20:25)
[2020-05-22] MEDS: HYDROCODONE/APAP 5-325MG TABLET PO PRN (20:26)
[2020-05-22] MEDS: CEFEPIME HCL 2 G in IV DEXTROSE 5% 100 ML IV SCH (21:33)
[2020-05-22] MEDS ORDERED: CEFEPIME HCL 1 G in IV DEXTROSE 5% 50 ML IV SCH (22:00)
[2020-05-23] VITALS (17 sets, daily range): BP systolic 90–111; BP diastolic 46–62
[2020-05-23] MEDS: LORAZEPAM 2 MG/1 ML VIAL IV PRN (00:10)
--- NOTE | 2020-05-23 02:13 | NUR ---
1 unit PRBC given per MD order. No adverse reaction noted. VS 96/50, pulse 93, Temp 97.8, on 2L NC at 100% Will continue to monitor for s/s of adverse reaction.
[2020-05-23] MEDS: VANCOMYCIN IV 1,250 MG in IV DEXTROSE 5% 250 ML IV SCH ×2 (04:36→19:59)
--- NOTE | 2020-05-23 06:30 | NUR ---
Patient slept throughout the night. No s/s of acute distress noted at this time. Pt remains on 2L NC with O2 @ 98%, denies SOB and pain. Tele monitor on, controlled afib. Patient refused wound dressing change, will endorse to oncoming shift. All needs were met and attended to. Safety measures remain intact.
[2020-05-23] MEDS: CEFEPIME HCL 2 G in IV DEXTROSE 5% 100 ML IV SCH ×3 (06:34→22:24)
[2020-05-23] MEDS: LEVOTHYROXINE SODIUM 25 MCG TABLET PO SCH (06:47)
[2020-05-23] MEDS: BLOOD SUGAR DIAGNOSTIC 1 EACH STRIP VI SCH ×4 (06:53→20:37)
[2020-05-23 07:10] LABS: BASOPHILS # (AUTO) 0.2 K/uL (0.0-8.0); BASOPHILS % (AUTO) 0.9 % (0.0-2.0); EOSINOPHILS # (AUTO) 0.3 K/uL (0.0-0.7); EOSINOPHILS % (AUTO) 1.9 % (0.0-7.0); HEMOGLOBIN 7.6 g/dL (12.5-16.3); LYMPHOCYTES # (AUTO) 1.6 K/uL (20.0-40.0); LYMPHOCYTES % (AUTO) 9.3 % (20.5-51.5); MEAN CORPUSCULAR HEMOGLOBIN 28.1 uug (23.8-33.4); MEAN CORPUSCULAR HGB CONC 33 g/dL (32.5-36.3); MEAN CORPUSCULAR VOLUME 85.4 fL (73.0-96.2); MONOCYTES # (AUTO) 1.8 K/uL (2.0-10.0); MONOCYTES % (AUTO) 10.4 % (0.0-11.0); NEUTROPHILS # (AUTO) 13.8 K/uL (1.8-8.9); NEUTROPHILS % (AUTO) 77.5 % (38.5-71.5); PLATELET COUNT (AUTO) 350 K/uL (152-348); RED BLOOD CELL COUNT(AUTO) 2.69 MIL/uL (4.06-5.63); WHITE BLOOD COUNT (AUTO) 17.8 K/uL (3.6-10.2)
[2020-05-23 07:23] LABS: CREATININE 0.9 mg/dL (0.6-1.3); MAGNESIUM 1.8 mg/dL (1.8-2.4); POTASSIUM 3.6 mmol/L (3.5-5.1); URIC ACID 5.4 mg/dL (3.5-7.2)
[2020-05-23] MEDS: INSULIN REGULAR, HUMAN 300 UNIT/3 ML VIAL SQ PRN ×3 (08:04→17:16)
[2020-05-23 08:06] LABS: *IMMUNOGLOBULIN G, SERUM 732 mg/dL (603-1613); IMMUNOGLOBULIN A, SERUM 239 mg/dL (61-437); IMMUNOGLOBULIN M, SERUM 55 mg/dL (20-172)
[2020-05-23] MEDS: ASCORBIC ACID 250 MG TABLET PO SCH (08:07)
[2020-05-23] MEDS: SPIRONOLACTONE 25 MG TABLET PO SCH (08:07)
[2020-05-23] MEDS: CARVEDILOL 12.5 MG TABLET PO SCH ×2 (08:07→18:35)
[2020-05-23] MEDS: FUROSEMIDE 40 MG TABLET PO SCH (08:07)
[2020-05-23] MEDS: ZINC SULFATE 220 MG CAPSULE PO SCH (08:07)
[2020-05-23] MEDS: DIGOXIN 250 MCG TABLET PO SCH (08:07)
[2020-05-23] MEDS: PANTOPRAZOLE SODIUM 40 MG VIAL IV SCH ×2 (08:08→20:32)
[2020-05-23 08:09] LABS: THYROID STIMULATING HORMONE 8.524 mIU/mL (0.358-3.740)
[2020-05-23] MEDS: NICOTINE 21 MG/24HR PATCH TD SCH (08:31)
[2020-05-23] MEDS: Z GUARD REMEDY PASTE 57 GM TUBE TOP SCH ×2 (08:31→20:48)
[2020-05-23] MEDS: MUPIROCIN 2% OINT 22 GM TUBE TP SCH (08:31)
[2020-05-23] MEDS ORDERED: POTASSIUM CHLORIDE 20 MEQ POWDER PACKET PO ONE (08:45)
[2020-05-23] MEDS: MAGNESIUM SULFATE/D5W 100 ML IV SCH ×2 (09:02→10:09)
--- NOTE | 2020-05-23 12:41 | NUR ---
SPOKE WITH DENTURE MODEL MAKER REGARDING BLOOD TRANSFUSION ORDER. NOTIFIED ABOUT OVERNIGHT WEIGHT CHANGE AND TO CONFIRM IF TRANSFUSION IS STILL OKAY. PER DENTURE MODEL MAKER, TRANSFUSION TO BE HELD IF NO ACTIVE BLEEDING OR BLACK STOOLS. WOUND DRESSINGS CHANGED. NO S/S OF BLEEDING ON WOUND BED AND SURROUNDING SITES. WILL MONITOR PATIENT AND TRANSFUSE IF NEEDED.
[2020-05-23] MEDS: SOD FERRIC GLUC COMPLX/SUCROSE 125 MG in IV NORMAL SALINE 100 ML IV SCH (14:37)
[2020-05-23] MEDS: HYDROCODONE/APAP 5-325MG TABLET PO PRN (15:17)
--- NOTE | 2020-05-23 15:30 | NUR ---
PATIENT TITRATED DOWN TO ROOM AIR - SATURATING AT 98-99%. DENIES SOB. NO S/S OF DISTRESS NOTED AT THIS TIME.
[2020-05-23 15:41] LABS: *OCCULT BLOOD STOOL POSITIVE (NEGATIVE)
--- NOTE | 2020-05-23 16:45 | NUR ---
PATIENT HAD A LARGE BOWEL MOVEMENT. BLACK AND TARRY IN APPEARANCE. SAMPLE SENT TO LAB FOR STOOL OCCULT ORDER. SCREENER AND BLENDER NOTIFIED. GI MD NOTIFIED. WOUND BED ON SACRUM AND BUTTOCKS, CLEANED AND CHANGED. WILL CONTINUE TO MONITOR.
[2020-05-23 17:09] LABS: HEPATITIS B SURFACE AG NEGATIVE
[2020-05-23 17:10] LABS: HEPATITIS B SURFACE AB NON REACTIVE
--- NOTE | 2020-05-23 17:56 | NUR ---
BLOOD TRANSFUSION STARTED AT 1652. PATIENT TOLERATING TRANSFUSION WELL. NO S/S OF DISTRESS OR SOB NOTED. VSS. WILL CONTINUE TO CLOSELY MONITOR PATIENT.
--- NOTE | 2020-05-23 19:35 | NUR ---
Patient in bed awake alert and able to make needs known.Blood transfusion completed.Called lab /[facility] for H & H 15 minutes post transfusion . Patient on RA saturating well at 96%.Alcocer catheter in place draining well.Iv on right Fa 20 g .Administered Iv ATB .Tolerated well.Will continue to monitor.
[2020-05-23] MEDS: MORPHINE SULFATE 4 MG/1 ML DISP.SYRIN IV PRN (20:12)
[2020-05-23 20:24] LABS: HEMATOCRIT 26.1 % (36.7-47.1); HEMOGLOBIN 8.5 g/dL (12.5-16.3)
[2020-05-23] MEDS: INSULIN REGULAR, HUMAN 300 UNITS/3 ML VIAL SQ PRN (20:47)
[2020-05-24 00:31] VITALS: BP 97/60
[2020-05-24] MEDS: MORPHINE SULFATE 4 MG/1 ML DISP.SYRIN IV PRN ×4 (04:31→22:54)
[2020-05-24] MEDS: CEFEPIME HCL 2 G in IV DEXTROSE 5% 100 ML IV SCH ×3 (05:18→21:00)
--- NOTE | 2020-05-24 05:41 | NUR ---
Patient c/o gen. pain.Medicated with Morphine 4 mg IVP with good result. Bm x1 large black stools. Wound care tx provided. Tolerated well.BP 106/61,93 ,18,97.8 96% on RA.
[2020-05-24 05:45] VITALS: BP 106/61
[2020-05-24] MEDS: LEVOTHYROXINE SODIUM 25 MCG TABLET PO SCH (06:06)
[2020-05-24] MEDS: BLOOD SUGAR DIAGNOSTIC 1 EACH STRIP VI SCH ×4 (06:36→20:57)
[2020-05-24 06:51] LABS: BASOPHILS # (AUTO) 0.2 K/uL (0.0-8.0); BASOPHILS % (AUTO) 0.9 % (0.0-2.0); EOSINOPHILS # (AUTO) 0.2 K/uL (0.0-0.7); EOSINOPHILS % (AUTO) 1.3 % (0.0-7.0); HEMOGLOBIN 9.1 g/dL (12.5-16.3); LYMPHOCYTES # (AUTO) 1.2 K/uL (20.0-40.0); LYMPHOCYTES % (AUTO) 6.6 % (20.5-51.5); MEAN CORPUSCULAR HEMOGLOBIN 28.6 uug (23.8-33.4); MEAN CORPUSCULAR HGB CONC 32 g/dL (32.5-36.3); MEAN CORPUSCULAR VOLUME 88.1 fL (73.0-96.2); MONOCYTES # (AUTO) 1.7 K/uL (2.0-10.0); MONOCYTES % (AUTO) 9.1 % (0.0-11.0); NEUTROPHILS # (AUTO) 15.1 K/uL (1.8-8.9); NEUTROPHILS % (AUTO) 82.1 % (38.5-71.5); PLATELET COUNT (AUTO) 388 K/uL (152-348); RED BLOOD CELL COUNT(AUTO) 3.18 MIL/uL (4.06-5.63); WHITE BLOOD COUNT (AUTO) 18.4 K/uL (3.6-10.2)
[2020-05-24 07:02] LABS: CREATININE 0.8 mg/dL (0.6-1.3)
[2020-05-24] MEDS: INSULIN REGULAR, HUMAN 300 UNIT/3 ML VIAL SQ PRN ×4 (07:46→21:19)
[2020-05-24] MEDS: SPIRONOLACTONE 25 MG TABLET PO SCH (08:27)
[2020-05-24] MEDS: ZINC SULFATE 220 MG CAPSULE PO SCH (08:27)
[2020-05-24] MEDS: ASCORBIC ACID 250 MG TABLET PO SCH (08:27)
[2020-05-24] MEDS: PANTOPRAZOLE SODIUM 40 MG VIAL IV SCH ×2 (08:27→22:11)
[2020-05-24] MEDS: FUROSEMIDE 40 MG TABLET PO SCH (08:27)
[2020-05-24] MEDS: DIGOXIN 250 MCG TABLET PO SCH (08:28)
[2020-05-24] MEDS: VANCOMYCIN IV 1,250 MG in IV DEXTROSE 5% 250 ML IV SCH ×2 (08:30→22:54)
[2020-05-24] MEDS: CARVEDILOL 12.5 MG TABLET PO SCH ×2 (08:32→17:52)
[2020-05-24] MEDS: Z GUARD REMEDY PASTE 57 GM TUBE TOP SCH ×2 (08:40→21:20)
[2020-05-24] MEDS: NICOTINE 21 MG/24HR PATCH TD SCH (08:40)
[2020-05-24] MEDS: MUPIROCIN 2% OINT 22 GM TUBE TP SCH (08:41)
[2020-05-24] MEDS: HYDROCODONE/APAP 5-325MG TABLET PO PRN (09:44)
--- NOTE | 2020-05-24 09:48 | NUR ---
PATIENT COMPLAINING OF SEVERE PAIN ON THE SACRUM AND B/L FOOT. MORPHINE NOT AVAILABLE FOR ANOTHER HOUR. OFFERED NORCO TO RELIEVE PAIN. PATIENT STATES, "IT DOESN'T HELP MUCH BUT I'LL TRY IT." GIVEN PRN NORCO. WILL CONTINUE TO MONITOR.
--- NOTE | 2020-05-24 10:14 | NUR ---
PATIENT STILL COMPLAINTS OF PAIN AFTER BEING GIVEN THE PRN NORCO. INFORMED HIM THAT HIS MORPHINE IS NOT DUE FOR ANOTHER 15 MINS. PATIENT VERBALIZED UNDERSTANDING AND ASKED IF HE CAN RECEIVE THE MORPHINE SOON IT IS AVAILABLE.
[2020-05-24 12:00] VITALS: BP 106/55
[2020-05-24 15:50] VITALS: BP 128/75
--- NOTE | 2020-05-24 19:45 | NUR ---
PATIENT ALERT ORIENTED, NO SOB NO CHEST PAIN. PATIENT ON TELE MONITOR SINUS RHYTHM AT THIS TIME. PATIENT HAS NO COMPLAIN OF PAIN AT THIS TIME. PATIENT WAS REMINDED TO TURN AND REPOSITION DUE PRESSURE SORE ON SACRUM AND BUTTOCKS AREAS. PATIENT HOFFMAN CATH PATENT, DRAINING WITH YELLOW COLOR URINE IN MODERATE AMOUNT, CONT TO MONITOR.
[2020-05-24 20:11] VITALS: BP 102/65
--- NOTE | 2020-05-24 21:30 | NUR ---
PATIENT HAS EPISODE OF AGITATION, DEMANDING FOR CHEESE PIZZA, AND SOME PRETZEL. EXPLAINED TO PATIENT THAT WE DON'T SERVE FOOD LIKE THAT AT THIS TIME. PATIENT DEMANDED TO BE SERVE RIGHT NOW. PATIENT WAS OFFERED, DIABETIC PUDDING, SOME CRACKERS AND PATIENT TOOK THE SNACKS, ATTEND ALL NEEDS MUCH POSSIBLE. CONT TO MONITOR.
[2020-05-25] MEDS: CEFEPIME HCL 2 G in IV DEXTROSE 5% 100 ML IV SCH ×3 (05:11→21:49)
[2020-05-25 05:22] VITALS: BP 110/74
[2020-05-25] MEDS: LEVOTHYROXINE SODIUM 25 MCG TABLET PO SCH (06:21)
[2020-05-25] MEDS: BLOOD SUGAR DIAGNOSTIC 1 EACH STRIP VI SCH ×4 (06:22→20:26)
--- NOTE | 2020-05-25 06:52 | NUR ---
PATIENT SLEPT MOST OF THE NIGHT, CONT ON PAIN MANAGEMENT DUE MULTIPLE SORES, HOFFMAN CATH INTACT, REMAINS NPO AT THIS TIME, TX DONE ON WOUND, CONT ON TELE MONITOR SINUS RHYTHM. CALL LIGHT WITHIN REACH.
[2020-05-25 07:15] LABS: BASOPHILS # (AUTO) 0.2 K/uL (0.0-8.0); BASOPHILS % (AUTO) 1.1 % (0.0-2.0); EOSINOPHILS # (AUTO) 0.3 K/uL (0.0-0.7); EOSINOPHILS % (AUTO) 1.6 % (0.0-7.0); HEMATOCRIT 31.2 % (36.7-47.1); HEMOGLOBIN 10.1 g/dL (12.5-16.3); LYMPHOCYTES # (AUTO) 1.1 K/uL (20.0-40.0); LYMPHOCYTES % (AUTO) 6.3 % (20.5-51.5); MEAN CORPUSCULAR HEMOGLOBIN 28.7 uug (23.8-33.4); MEAN CORPUSCULAR HGB CONC 33 g/dL (32.5-36.3); MEAN CORPUSCULAR VOLUME 88.3 fL (73.0-96.2); MONOCYTES # (AUTO) 1.5 K/uL (2.0-10.0); MONOCYTES % (AUTO) 8.1 % (0.0-11.0); NEUTROPHILS # (AUTO) 14.9 K/uL (1.8-8.9); NEUTROPHILS % (AUTO) 82.9 % (38.5-71.5); PLATELET COUNT (AUTO) 452 K/uL (152-348); RED BLOOD CELL COUNT(AUTO) 3.53 MIL/uL (4.06-5.63)
[2020-05-25 07:46] LABS: CREATININE 0.9 mg/dL (0.6-1.3); POTASSIUM 4.1 mmol/L (3.5-5.1)
--- NOTE | 2020-05-25 08:00 | NUR ---
Kept Pt NPO x meds for EGD procedure today. Able to give meds. Pt states that he does not want to do the procedure without talking to the DR HOSKINS. Spoke with surgery team about pts request to talk with DR HOSKINS. PER surgery team pt will be taken down and DR Hoskins will talk with pt prior to procedure. Pt denies any c/o pain. Call light is within reach.
[2020-05-25] MEDS: ZINC SULFATE 220 MG CAPSULE PO SCH (08:47)
[2020-05-25] MEDS: NICOTINE 21 MG/24HR PATCH TD SCH (08:47)
[2020-05-25] MEDS: FUROSEMIDE 40 MG TABLET PO SCH (08:47)
[2020-05-25] MEDS: DIGOXIN 250 MCG TABLET PO SCH (08:48)
[2020-05-25] MEDS: SPIRONOLACTONE 25 MG TABLET PO SCH (08:48)
[2020-05-25] MEDS: CARVEDILOL 12.5 MG TABLET PO SCH ×2 (08:54→16:02)
[2020-05-25] MEDS: ASCORBIC ACID 250 MG TABLET PO SCH (08:55)
[2020-05-25] MEDS: Z GUARD REMEDY PASTE 57 GM TUBE TOP SCH ×2 (08:55→21:47)
[2020-05-25] MEDS: MUPIROCIN 2% OINT 22 GM TUBE TP SCH (08:55)
[2020-05-25] MEDS: PANTOPRAZOLE SODIUM 40 MG VIAL IV SCH ×2 (09:00→21:47)
[2020-05-25 10:06] LABS: A/G RATIO 0.9 (0.7-1.7); ALBUMIN 2.3 g/dL (2.9-4.4); ALPHA-1-GLOBULIN 0.3 g/dL (0.0-0.4); ALPHA-2-GLOBULIN 0.6 g/dL (0.4-1.0); GAMMA GLOBULIN 0.6 g/dL (0.4-1.8); GLOBULIN, TOTAL 2.5 g/dL (2.2-3.9); M-SPIKE Not Observed g/dL (Not Observed)
--- NOTE | 2020-05-25 11:30 | NUR ---
Pt picked up by surgery team. Preop checklist done. Consent signed by pt. Reinforce pt's request to talk with the DR prior to procedure.
[2020-05-25] MEDS: INSULIN REGULAR, HUMAN 300 UNIT/3 ML VIAL SQ PRN ×2 (13:23→16:07)
--- NOTE | 2020-05-25 13:30 | NUR ---
Received pt back from GI lab. Pt awake alert oriented x 4. Pt able to move all extremities. VSS. Call light is within reach.
[2020-05-25 13:54] VITALS: BP 115/69
[2020-05-25] MEDS: VANCOMYCIN IV 1,250 MG in IV DEXTROSE 5% 250 ML IV SCH (13:59)
[2020-05-25] MEDS: LORAZEPAM 2 MG/1 ML VIAL IV PRN (15:05)
[2020-05-25 16:00] VITALS: BP 107/68
[2020-05-25] MEDS ORDERED: ETOMIDATE 20 MG/10 ML VIAL ONE (17:00)
[2020-05-25] MEDS ORDERED: PROPOFOL 200 MG/20 ML BOTTLE ONE (17:00)
[2020-05-25] MEDS ORDERED: IV NORMAL SALINE 1000 ML BAG ONE (17:00)
[2020-05-25] MEDS: MORPHINE SULFATE 4 MG/1 ML DISP.SYRIN IV PRN ×2 (17:37→23:49)
--- NOTE | 2020-05-25 19:45 | NUR ---
PATIENT ALERT ORIENTED, NO SOB NO CHEST PAIN, TELE MONITOR SINUS RHYTHM AT THIS TIME. PATIENT HAS NO COMPLAIN OF PAIN AT THIS TIME. PATIENT IV LINE DISLODGED WILL REINSERT NEW ONE. PATIENT HAS EPISODE OF AGITATION, DEMANDING SERVICE RIGHT AWAY, ATTEND ALL NEEDS MUCH POSSIBLE, CONT TO MONITOR.
[2020-05-25 20:12] VITALS: BP 106/56
[2020-05-25] MEDS: INSULIN REGULAR, HUMAN 300 UNITS/3 ML VIAL SQ PRN (20:28)
[2020-05-26 00:22] VITALS: BP 101/57
[2020-05-26] MEDS: VANCOMYCIN IV 1,250 MG in IV DEXTROSE 5% 250 ML IV SCH ×2 (03:10→17:37)
[2020-05-26 04:16] VITALS: BP 103/69
[2020-05-26] MEDS: CEFEPIME HCL 2 G in IV DEXTROSE 5% 100 ML IV SCH ×3 (05:13→21:10)
[2020-05-26] MEDS: LEVOTHYROXINE SODIUM 25 MCG TABLET PO SCH (06:26)
[2020-05-26] MEDS: BLOOD SUGAR DIAGNOSTIC 1 EACH STRIP VI SCH ×4 (06:27→20:24)
--- NOTE | 2020-05-26 06:32 | NUR ---
PATIENT ALERT ORIENTED, NO SOB NO CHEST PAIN, PATIENT ON TELE MONITOR SINUS RHYTHM AT THIS TIME. PATIENT CONT ON PAIN MANAGEMENT DUE TO MULTIPLE SORES. PATIENT REFUSED SACRUM, LEFT BUTTOCK, LEFT HIP PRESSURE SORES, PATIENT GET AGITATED, ABLE TO DO TREATMENT ON RIGHT FOOT MULTIPLE WOUNDS. CONT TO MONITOR.
[2020-05-26 06:52] LABS: BASOPHILS # (AUTO) 0.2 K/uL (0.0-8.0); BASOPHILS % (AUTO) 1.3 % (0.0-2.0); EOSINOPHILS # (AUTO) 0.2 K/uL (0.0-0.7); EOSINOPHILS % (AUTO) 1.5 % (0.0-7.0); HEMATOCRIT 32.6 % (36.7-47.1); HEMOGLOBIN 10.6 g/dL (12.5-16.3); LYMPHOCYTES % (AUTO) 6.7 % (20.5-51.5); MEAN CORPUSCULAR HEMOGLOBIN 29.1 uug (23.8-33.4); MEAN CORPUSCULAR HGB CONC 33 g/dL (32.5-36.3); MEAN CORPUSCULAR VOLUME 89.4 fL (73.0-96.2); MONOCYTES # (AUTO) 1.3 K/uL (2.0-10.0); MONOCYTES % (AUTO) 8.6 % (0.0-11.0); NEUTROPHILS # (AUTO) 12.5 K/uL (1.8-8.9); NEUTROPHILS % (AUTO) 81.9 % (38.5-71.5); PLATELET COUNT (AUTO) 451 K/uL (152-348); RED BLOOD CELL COUNT(AUTO) 3.65 MIL/uL (4.06-5.63); WHITE BLOOD COUNT (AUTO) 15.3 K/uL (3.6-10.2)
[2020-05-26 07:10] LABS: BILIRUBIN,DIRECT 0.3 mg/dL (0.0-0.2); BILIRUBIN,TOTAL 0.7 mg/dL (0.2-1.0); MAGNESIUM 2.1 mg/dL (1.8-2.4); TOTAL PROTEIN, SERUM 6.2 g/dL (6.4-8.2)
[2020-05-26 07:20] LABS: CREATININE 0.9 mg/dL (0.6-1.3); POTASSIUM 4.5 mmol/L (3.5-5.1)
--- NOTE | 2020-05-26 07:30 | NUR ---
Received patient resting in bed. No sign distress noted. patient is awake, alert and oriented times 4. Patient is saturating well on room air. Safety measures are in place. Will continue to monitor.
[2020-05-26] MEDS: ASCORBIC ACID 250 MG TABLET PO SCH (08:17)
[2020-05-26] MEDS: FUROSEMIDE 40 MG TABLET PO SCH (08:17)
[2020-05-26] MEDS: SPIRONOLACTONE 25 MG TABLET PO SCH (08:17)
[2020-05-26] MEDS: ZINC SULFATE 220 MG CAPSULE PO SCH (08:17)
[2020-05-26] MEDS: PANTOPRAZOLE SODIUM 40 MG VIAL IV SCH (08:17)
[2020-05-26] MEDS: DIGOXIN 250 MCG TABLET PO SCH (08:18)
[2020-05-26] MEDS: Z GUARD REMEDY PASTE 57 GM TUBE TOP SCH ×2 (08:18→20:33)
[2020-05-26] MEDS: MUPIROCIN 2% OINT 22 GM TUBE TP SCH (08:19)
[2020-05-26] MEDS: INSULIN REGULAR, HUMAN 300 UNIT/3 ML VIAL SQ PRN ×2 (08:21→12:14)
[2020-05-26] MEDS: NICOTINE 21 MG/24HR PATCH TD SCH (08:45)
[2020-05-26] MEDS: CARVEDILOL 12.5 MG TABLET PO SCH ×2 (08:45→17:39)
--- NOTE | 2020-05-26 08:45 | NUR ---
Patient refused Nicotine patch after already opened. Will have to waste.
[2020-05-26] MEDS: MORPHINE SULFATE 4 MG/1 ML DISP.SYRIN IV PRN ×3 (09:10→19:50)
[2020-05-26 11:53] VITALS: BP 106/62
[2020-05-26] MEDS: PANTOPRAZOLE SODIUM 40 MG TABLET.DR PO SCH (17:37)
--- NOTE | 2020-05-26 18:32 | NUR ---
Patient is left resting in bed. No sign of distress noted. Dressing change completed. All medications given as ordered. Safety precautions are in place. Will endorse to the oncoming nurse.
[2020-05-26 20:00] VITALS: BP 102/55
[2020-05-26] MEDS: INSULIN REGULAR, HUMAN 300 UNITS/3 ML VIAL SQ PRN (20:31)
[2020-05-27] VITALS: BP 117/66
[2020-05-27 04:00] VITALS: BP 153/54
[2020-05-27] MEDS: CEFEPIME HCL 2 G in IV DEXTROSE 5% 100 ML IV SCH (05:35)
[2020-05-27] MEDS: PANTOPRAZOLE SODIUM 40 MG TABLET.DR PO SCH ×2 (06:06→17:49)
[2020-05-27] MEDS: LEVOTHYROXINE SODIUM 25 MCG TABLET PO SCH (06:06)
[2020-05-27] MEDS: BLOOD SUGAR DIAGNOSTIC 1 EACH STRIP VI SCH ×4 (06:32→21:11)
[2020-05-27 06:49] LABS: BASOPHILS # (AUTO) 0.1 K/uL (0.0-8.0); BASOPHILS % (AUTO) 0.6 % (0.0-2.0); EOSINOPHILS # (AUTO) 0.2 K/uL (0.0-0.7); EOSINOPHILS % (AUTO) 1.3 % (0.0-7.0); HEMATOCRIT 31.2 % (36.7-47.1); HEMOGLOBIN 10.3 g/dL (12.5-16.3); LYMPHOCYTES # (AUTO) 0.8 K/uL (20.0-40.0); LYMPHOCYTES % (AUTO) 5.3 % (20.5-51.5); MEAN CORPUSCULAR HEMOGLOBIN 28.8 uug (23.8-33.4); MEAN CORPUSCULAR HGB CONC 33 g/dL (32.5-36.3); MEAN CORPUSCULAR VOLUME 87.5 fL (73.0-96.2); MONOCYTES # (AUTO) 1.3 K/uL (2.0-10.0); MONOCYTES % (AUTO) 8.2 % (0.0-11.0); NEUTROPHILS # (AUTO) 13.3 K/uL (1.8-8.9); NEUTROPHILS % (AUTO) 84.6 % (38.5-71.5); PLATELET COUNT (AUTO) 508 K/uL (152-348); RED BLOOD CELL COUNT(AUTO) 3.57 MIL/uL (4.06-5.63); WHITE BLOOD COUNT (AUTO) 15.7 K/uL (3.6-10.2)
--- NOTE | 2020-05-27 06:53 | NUR ---
Patient slept well .C/o gen pain last night .Medicated with Morphine IVP .No a/r noted.Iv on right Fa 20g patent and intact.Administered ATb IV as ordered. Due meds given. Patient has multiple wounds. Wound care tx done.Photos taken and placed on the chart.Patient on RA saturating at 95%.Alcocer catheter in place draining well with clear urine output.Continue safety measures. Call light within reach. All needs anticipated and met accordingly.
[2020-05-27 07:08] LABS: PHOSPHOROUS 3.3 mg/dL (2.5-4.9); POTASSIUM 4.3 mmol/L (3.5-5.1); VANCOMYCIN,TROUGH 18.8 ug/mL (12.0-20.0)
[2020-05-27] MEDS: CARVEDILOL 12.5 MG TABLET PO SCH ×2 (08:00→17:49)
[2020-05-27 08:08] VITALS: BP 105/54
[2020-05-27] MEDS: VANCOMYCIN IV 1,250 MG in IV DEXTROSE 5% 250 ML IV SCH (08:11)
[2020-05-27] MEDS: ZINC SULFATE 220 MG CAPSULE PO SCH (08:39)
[2020-05-27] MEDS: FUROSEMIDE 40 MG TABLET PO SCH (08:40)
[2020-05-27] MEDS: SPIRONOLACTONE 25 MG TABLET PO SCH (08:40)
[2020-05-27] MEDS: ASCORBIC ACID 250 MG TABLET PO SCH (08:40)
[2020-05-27] MEDS: NICOTINE 21 MG/24HR PATCH TD SCH (08:53)
[2020-05-27] MEDS: DIGOXIN 250 MCG TABLET PO SCH (08:54)
[2020-05-27] MEDS: MORPHINE SULFATE 4 MG/1 ML DISP.SYRIN IV PRN ×3 (09:13→20:52)
[2020-05-27] MEDS: MUPIROCIN 2% OINT 22 GM TUBE TP SCH (09:14)
[2020-05-27] MEDS: Z GUARD REMEDY PASTE 57 GM TUBE TOP SCH ×2 (09:14→21:16)
[2020-05-27] MEDS: SODIUM HYPOCHLORITE 0.25% (HALF STRENGTH) 480 ML BOTTLE TOP SCH (10:52)
[2020-05-27 11:41] VITALS: BP 125/71
[2020-05-27] MEDS: HYDROCODONE/APAP 5-325MG TABLET PO PRN (12:34)
[2020-05-27] MEDS ORDERED: LIDOCAINE 1%-EPI 1:200,000 MPF 30 ML VIAL IJ ONE ×2 (12:45)
[2020-05-27] MEDS ORDERED: SILVER NITRATE APPLICATOR STICK EACH TP PRN (13:30)
[2020-05-27] MEDS: INSULIN REGULAR, HUMAN 300 UNIT/3 ML VIAL SQ PRN (14:56)
[2020-05-27 14:57] VITALS: BP 115/67
--- NOTE | 2020-05-27 19:30 | NUR ---
RECEIVED PT AWAKE, ALERT AND ORIENTEDX4. PT IN NO ACUTE DISTRESS. IV INTACT. PT ON FIRST STEP MATTRESS. SAFETY AND COMFORT PROVIDED. WILL CONTINUE TO MONITOR.
[2020-05-27 20:00] VITALS: BP 104/51
[2020-05-27] MEDS: DOXYCYCLINE HYCLATE 100 MG TABLET PO SCH (20:40)
[2020-05-27] MEDS: INSULIN REGULAR, HUMAN 300 UNITS/3 ML VIAL SQ PRN (21:12)
--- NOTE | 2020-05-27 21:52 | NUR ---
PT GIVEN MORPHINE PRN FOR PAIN. PT TOLERATED IT WELL. WILL CONTINUE TO MONITOR.
[2020-05-28] VITALS: BP_SYST 102; BP_SYST 92; BP_DIAS 52
[2020-05-28 02:00] VITALS: BP 115/70
[2020-05-28] MEDS: MORPHINE SULFATE 4 MG/1 ML DISP.SYRIN IV PRN ×2 (05:53→11:54)
[2020-05-28] MEDS: LEVOTHYROXINE SODIUM 25 MCG TABLET PO SCH (06:13)
[2020-05-28] MEDS: PANTOPRAZOLE SODIUM 40 MG TABLET.DR PO SCH (06:13)
--- NOTE | 2020-05-28 06:25 | NUR ---
PT SLEPT INTERMITTENTLY. PT IN NO ACUTE DISTRESS. IV INTACT. HOFFMAN INTACT. PT REFUSED HIS DRESSING CHANGED. MORPHINE PRN GIVEN AT 2052H AND 0553H FOR PAIN. PT TOLERATED IT WELL. SAFETY AND COMFORT PROVIDED. WILL ENDORSE TO INCOMING NURSE FOR CONTINUITY OF CARE.
[2020-05-28] MEDS: BLOOD SUGAR DIAGNOSTIC 1 EACH STRIP VI SCH ×2 (06:34→11:17)
[2020-05-28 06:36] LABS: BASOPHILS # (AUTO) 0.2 K/uL (0.0-8.0); BASOPHILS % (AUTO) 1.2 % (0.0-2.0); EOSINOPHILS # (AUTO) 0.2 K/uL (0.0-0.7); EOSINOPHILS % (AUTO) 1.6 % (0.0-7.0); HEMATOCRIT 31.4 % (36.7-47.1); HEMOGLOBIN 10.4 g/dL (12.5-16.3); LYMPHOCYTES # (AUTO) 0.9 K/uL (20.0-40.0); LYMPHOCYTES % (AUTO) 6.6 % (20.5-51.5); MEAN CORPUSCULAR HEMOGLOBIN 29.1 uug (23.8-33.4); MEAN CORPUSCULAR HGB CONC 33 g/dL (32.5-36.3); MEAN CORPUSCULAR VOLUME 87.9 fL (73.0-96.2); MONOCYTES # (AUTO) 1.3 K/uL (2.0-10.0); MONOCYTES % (AUTO) 9.8 % (0.0-11.0); NEUTROPHILS # (AUTO) 11.1 K/uL (1.8-8.9); NEUTROPHILS % (AUTO) 80.8 % (38.5-71.5); PLATELET COUNT (AUTO) 507 K/uL (152-348); RED BLOOD CELL COUNT(AUTO) 3.57 MIL/uL (4.06-5.63); WHITE BLOOD COUNT (AUTO) 13.7 K/uL (3.6-10.2)
[2020-05-28 06:53] LABS: CREATININE 0.9 mg/dL (0.6-1.3); MAGNESIUM 2.2 mg/dL (1.8-2.4); PHOSPHOROUS 2.8 mg/dL (2.5-4.9); POTASSIUM 4.2 mmol/L (3.5-5.1)
[2020-05-28 08:16] VITALS: BP 113/47
[2020-05-28] MEDS: ZINC SULFATE 220 MG CAPSULE PO SCH (08:21)
[2020-05-28] MEDS: ASCORBIC ACID 250 MG TABLET PO SCH (08:21)
[2020-05-28] MEDS: CARVEDILOL 12.5 MG TABLET PO SCH (08:21)
[2020-05-28] MEDS: DOXYCYCLINE HYCLATE 100 MG TABLET PO SCH (08:21)
[2020-05-28] MEDS: FUROSEMIDE 40 MG TABLET PO SCH (08:22)
[2020-05-28] MEDS: SPIRONOLACTONE 25 MG TABLET PO SCH (08:22)
[2020-05-28] MEDS: DIGOXIN 250 MCG TABLET PO SCH (08:22)
[2020-05-28] MEDS: SODIUM HYPOCHLORITE 0.25% (HALF STRENGTH) 480 ML BOTTLE TOP SCH (08:23)
[2020-05-28] MEDS: MUPIROCIN 2% OINT 22 GM TUBE TP SCH (08:24)
[2020-05-28] MEDS: Z GUARD REMEDY PASTE 57 GM TUBE TOP SCH (08:24)
[2020-05-28] MEDS: NICOTINE 21 MG/24HR PATCH TD SCH (08:31)
--- NOTE | 2020-05-28 10:00 | NUR ---
Patient is complaining of pain and is requesting morphine. Notified patient that morphine that next dose is not available until 1153. Patient states "Let me talk to the Doctor." Will notify .
[2020-05-28] MEDS: HYDROCODONE/APAP 5-325MG TABLET PO PRN (11:04)
[2020-05-28] MEDS: INSULIN REGULAR, HUMAN 300 UNIT/3 ML VIAL SQ PRN (11:20)
[2020-05-28 11:27] VITALS: BP 112/63
--- NOTE | 2020-05-28 12:58 | NUR ---
DRESSINGS ON LEFT BUTTOCKS AND B/L FEET CHANGED. WOUND CLEANED, DRESSING CLEAN AND INTACT. COMPLAINED OF PAIN BEFORE DRESSING CHANGE. GIVEN PRN MORPHINE. WILL CONTINUE TO MONITOR.
[2020-05-28 15:27] VITALS: BP 108/53
[2020-05-28] MEDS ORDERED: SODI480S2 TOP (15:43)
[2020-05-28] MEDS ORDERED: Blood Sugar Diagnostic VI (15:43)
[2020-05-28] MEDS ORDERED: INSU100V28 SQ ×2 (15:43)
[2020-05-28] MEDS ORDERED: ZINC1CAP3 PO (15:43)
[2020-05-28] MEDS ORDERED: SPIR25TA PO (15:43)
[2020-05-28] MEDS ORDERED: HYDR-3972 PO (15:43)
[2020-05-28] MEDS ORDERED: DOXY100T2 PO (15:43)
[2020-05-28] MEDS ORDERED: OMEP20TA20 PO (15:43)
[2020-05-28] MEDS ORDERED: ZOLP5TAB8 PO (15:43)
[2020-05-28] MEDS ORDERED: APIX5TAB PO (15:43)
[2020-05-28] MEDS ORDERED: MENT71OI TOP (15:43)
[2020-05-28] MEDS ORDERED: ACET325T53 PO (15:43)
[2020-05-28] MEDS ORDERED: MENT113O TOP (15:43)
[2020-05-28] MEDS ORDERED: DIGO250T16 PO (15:43)
[2020-05-28] MEDS ORDERED: NICO-780 TD (15:43)
[2020-05-28] MEDS ORDERED: LEVO25TA9 PO (15:43)
[2020-05-28] MEDS ORDERED: FURO40TA5 PO (15:43)
[2020-05-28] MEDS ORDERED: MAGN400O6 PO (15:43)
[2020-05-28] MEDS ORDERED: CARV12.52 PO (15:43)
[2020-05-28] MEDS ORDERED: ASCO250T22 PO (15:43)
[2020-05-28] MEDS ORDERED: DEXT50DI8 IV (15:43)
--- NOTE | 2020-05-28 16:47 | NUR ---
PATIENT SCHEDULED TO BE DISCHARGED TO SNF. HAD EXTENSIVE CONVERSATION WITH PATIENT REGARDING SNF ARRANGEMENT, WOUND CARE AND PODIATRY CARE ARRANGED AT THE SNF. PATIENT VERBALIZED THAT HE UNDERSTANDS BUT HE DOES NOT WANT TO GO TO THE SNF BECAUSE HE "WANTS TO GO BACK TO MY TRAILER AND NOT GO TO THAT PLACE." DISCUSSED BENEFITS OF GOING TO SNF AND CONTINUING CARE THERE. PATIENT ADAMANT ABOUT LEAVING AND GOING BACK TO HIS TRAILER. IV REMOVED, NO S/S OF BLEEDING NOTED. HOFFMAN CATHETER REMOVED. LAB TECHNICIAN AND CASE MANAGEMENT NOTIFIED OF PATIENT DECISION TO AMA. Addendum: 05/28/20 at 1715 by HELDER FOLEY RN PATIENT REFUSED TO SIGN AMA PAPER AND LEFT FACILITY.
== END 2020-05-28 17:11 | disposition left against medical advice (07) | DRG 710 ==
LOC: ER 01:20 → CCU 06:54 → TELE3 05-18 18:38
PROVIDERS: ADMIT Internal Medicine; ATTEND Registered Nurse
PROC: B546ZZA Ultrasonography of Right Subclavian Vein, Guidance (ICD-10-PCS; 2020-05-14)
PROC: 05H533Z Insertion of Infusion Device into Right Subclavian Vein, Percutaneous Approach (ICD-10-PCS; 2020-05-14)
PROC: 0JBP0ZZ Excision of Left Lower Leg Subcutaneous Tissue and Fascia, Open Approach (ICD-10-PCS; principal; 2020-05-19)
PROC: 0JBN0ZZ Excision of Right Lower Leg Subcutaneous Tissue and Fascia, Open Approach (ICD-10-PCS; principal; 2020-05-19)
PROC: 0KBP0ZZ Excision of Left Hip Muscle, Open Approach (ICD-10-PCS; 2020-05-20)
PROC: 30233N1 Transfusion of Nonautologous Red Blood Cells into Peripheral Vein, Percutaneous Approach (ICD-10-PCS; 2020-05-21)
PROC: 0DB78ZX Excision of Stomach, Pylorus, Via Natural or Artificial Opening Endoscopic, Diagnostic (ICD-10-PCS; 2020-05-25)
PROC: 0KBP0ZZ Excision of Left Hip Muscle, Open Approach (ICD-10-PCS; 2020-05-27)
DX: A41.9 Sepsis, unspecified organism (principal); N39.0 Urinary tract infection, site not specified; I21.4 Non-ST elevation (NSTEMI) myocardial infarction; N17.0 Acute kidney failure with tubular necrosis; E11.51 Type 2 diabetes mellitus with diabetic peripheral angiopathy without gangrene; J96.01 Acute respiratory failure with hypoxia; Z20.822 Contact with and (suspected) exposure to COVID-19; Z59.0 Homelessness; L89.156 Pressure-induced deep tissue damage of sacral region; L89.310 Pressure ulcer of right buttock, unstageable; B95.2 Enterococcus as the cause of diseases classified elsewhere; E11.42 Type 2 diabetes mellitus with diabetic polyneuropathy; L89.324 Pressure ulcer of left buttock, stage 4; L89.224 Pressure ulcer of left hip, stage 4; I48.91 Unspecified atrial fibrillation; I50.23 Acute on chronic systolic (congestive) heart failure; R74.01 Elevation of levels of liver transaminase levels; D62 Acute posthemorrhagic anemia; F11.10 Opioid abuse, uncomplicated; F15.10 Other stimulant abuse, uncomplicated; F17.210 Nicotine dependence, cigarettes, uncomplicated; I25.10 Atherosclerotic heart disease of native coronary artery without angina pectoris; I27.21 Secondary pulmonary arterial hypertension; I48.0 Paroxysmal atrial fibrillation; L03.116 Cellulitis of left lower limb; L03.115 Cellulitis of right lower limb; L03.114 Cellulitis of left upper limb; L03.113 Cellulitis of right upper limb; S81.012A Laceration without foreign body, left knee, initial encounter; S81.011A Laceration without foreign body, right knee, initial encounter; X58.XXXA Exposure to other specified factors, initial encounter; Y93.9 Activity, unspecified; Y92.89 Other specified places as the place of occurrence of the external cause; E11.52 Type 2 diabetes mellitus with diabetic peripheral angiopathy with gangrene; I96 Gangrene, not elsewhere classified; E11.622 Type 2 diabetes mellitus with other skin ulcer; L97.919 Non-pressure chronic ulcer of unspecified part of right lower leg with unspecified severity; L97.929 Non-pressure chronic ulcer of unspecified part of left lower leg with unspecified severity; I82.B12 Acute embolism and thrombosis of left subclavian vein; I82.C12 Acute embolism and thrombosis of left internal jugular vein; N13.6 Pyonephrosis; R91.1 Solitary pulmonary nodule; K74.60 Unspecified cirrhosis of liver; R18.8 Other ascites; E22.2 Syndrome of inappropriate secretion of antidiuretic hormone; K25.9 Gastric ulcer, unspecified as acute or chronic, without hemorrhage or perforation; R59.1 Generalized enlarged lymph nodes; M79.81 Nontraumatic hematoma of soft tissue; J18.9 Pneumonia, unspecified organism; L02.31 Cutaneous abscess of buttock; K26.4 Chronic or unspecified duodenal ulcer with hemorrhage; E03.9 Hypothyroidism, unspecified; I11.0 Hypertensive heart disease with heart failure; B96.89 Other specified bacterial agents as the cause of diseases classified elsewhere
CPT/HCPCS: 36415; 36600; 70030-TC; 70450; 71045; 71275; 73590; 73630; 82105; 82378; 82652; 82784; 83550; 83605; 83615; 83735; 84100; 84153; 84155; 84165; 84443; 84480; 84550; 85018; 85025; 85610; 85730; 86334; 86706; 86803; 86850; 86900; 86901; 86920; 87040; 87070; 87077; 87086; 87340; 88313-TC; 88342; 93005; 93307; A4217; A4663; C9113; G0378; G0480; J0692; J0696; J1160; J1200; J1650; J1815; J1940; J2060; J2270; J2916; J3370; J3430; J3475; J3480; J3490; J7030; J7040; J7050; J7060; P9016-BL; P9021; Q9967